=== PATIENT | female | born 1960 | race Caucasian/White ===

== ENCOUNTER 2023-12-25 13:24 | Outpatient (CLI) | payer MEDICARE, SELFPAY ==
[2023-12-25 20:05] LABS: Hematocrit 45.3 % (37.0-47.0); Hemoglobin 13.8 g/dL (12.0-15.0); Mean Corpuscular HGB Conc 30.5 g/dl (32-36); Mean Corpuscular Hemoglobin 30.3 pg (26-34); Mean Corpuscular Volume 99.6 fl (80-100); Mean Platelet Volume 10.6 fl (7.4-10.4); Platelet Count Result 285 k/mm3 (150-375); Red Blood Count 4.55 M/mm3 (4.2-5.4); Red Cell Distribution Width 14.1 % (11.5-14.5); White Blood Count 8.9 K/mm3 (4.5-10.0)
[2023-12-25 20:30] LABS: Alanine Aminotransferase 20 U/L (6-35); Albumin Level 4.5 g/dL (3.5-5.1); Alkaline Phosphatase 121 U/L (38-126); Anion Gap 11 mmol/L (4-12); Aspartate Amino Transferase 37 U/L (14-36); Bilirubin,Total 0.7 mg/dL (0.2-1.3); Blood Urea Nitrogen 21 mg/dL (7-17); Calcium 9.6 mg/dL (8.4-10.2); Carbon Dioxide 29 mmol/L (22-30); Chloride 101 mmol/L (98-107); Estimated Glomerular Filt Rate 56; Glucose 93 mg/dL (65-110); Potassium 4.8 mmol/L (3.4-5.0); Sodium 141 mmol/L (137-145)
== END 2023-12-25 13:25 | disposition home or self-care (01) ==
PROVIDERS: PCP Nurse Practitioner Adult Health; Visit Provider Nurse Practitioner Adult Health
DX: I50.9 Heart failure, unspecified (principal); E07.9 Disorder of thyroid, unspecified
CPT/HCPCS: 36415; 80053; 84443; 85027

== ENCOUNTER 2023-12-30 01:39 | Day surgery (SDC) | payer MEDICARE, SELFPAY ==
[2023-12-17 14:27] VITALS: BMI 36.6
[2023-12-30 14:03] VITALS: BMI 36.3
[2023-12-30 14:04] VITALS: BP 144/86; PULSE 94; RESP 20; TEMP 36.3; O2SAT 94
[2023-12-30] MEDS: LACTATED RINGERS 1,000 ML 150 ML IV CONT (14:06)
--- NOTE | 2023-12-30 14:14 | WPDANESEPPF ---
Anes - Initial Pre Proc Eval Procedure: Operation Date: 12/30/23 15:00 Proposed Procedures p Colonoscopy - Michael Viramontes MD Date/Time: 12/30/23 14:14 Surgeon: Michael Viramontes MD Pre Op Diagnosis: screening colon Patient Data Age: 63 Gender: F Height: 1.57 m Weight: 90 kg Last Vital Signs Temp 36.3 C L 12/30/23 14:04 Pulse 94 12/30/23 14:04 Resp 20 12/30/23 14:04 BP 144/86 H 12/30/23 14:04 Pulse Ox 94 12/30/23 14:04 O2 Del Method Room Air 12/30/23 14:04 Allergies Allergy/AdvReac Type Severity Reaction Status Date / Time Sulfa (Sulfonamide Allergy Unknown Skin Verified 12/30/23 13:59 Antibiotics) irritation SULFA Allergy Unknown Unknown Uncoded 12/30/23 13:59 CATS/HORSES Allergy Unknown Uncoded 12/30/23 13:59 Home Medications Medication Instructions Recorded Confirmed Type Atarax 1 tablet BYMOUTH PRN 10/16/23 12/25/23 History B12 1 tablet BYMOUTH DAILY 10/16/23 12/25/23 History budesonide 160 mcg-glycopyr 9 2 inh inhalation BID 10/16/23 12/25/23 History mcg-formot 4.8 mcg/actuation HFA inhaler (Breztri Aerosphere) empagliflozin 10 mg tablet 10 mg PO DAILY 10/16/23 12/25/23 History (Jardiance) alprazolam 1 mg tablet 1 mg PO DAILY #90 tabs 10/29/23 12/25/23 Rx furosemide 40 mg tablet 40 mg PO QAM #90 tabs 11/19/23 12/25/23 Rx potassium chloride 20 mEq 20 meq PO DAILY #90 tabs 11/25/23 12/25/23 Rx tablet,extended release levothyroxine 125 mcg tablet 125 mcg PO DAILY 12/17/23 12/25/23 History semaglutide (weight loss) 0.25 0.25 mg (0.5 mL) subcut WEEKLY #2 12/25/23 12/25/23 Rx mg/0.5 mL subcutaneous pen mL injector (Carmella) Patient hx anesthesia problems: none Family hx anesthesia problems: none Results Review: All pre-operative results and documents have been reviewed as part of the pre-operative evaluation. [facility] Past Medical History Medical History (Updated 12/30/23 @ 14:14 by Bradford Case MD) Asthma CHF exacerbation COPD (chronic obstructive pulmonary disease) Disorder of thyroid Obesity Family History Family History Father Heart disease Grandparent Heart disease Social History Social History Smoking packs per day: 1.5 Smoking cigarettes per day: 30.0 Years smoked: 45 Smoking pack-years: 67.50 Smoking status: Former smoker Tobacco type: cigarettes Alcohol intake: current Drinks per week: 10 Alcohol use details: 1-2 drinks a day Substance use type: does not use Living arrangements: with family Additional living arrangements comments: with Spiritual care concerns: No Anes - Eval Final PreProcedure Day of Procedure 12/30/23 14:14 Patient weight: obese Heart: regular rate and rhythm Lungs: clear to auscultation Airway: Mallampati scale class II Neurological: alert and oriented Last oral intake: >/= 8 hours ASA classification: III Emergent: no Anesthetic plan: proceed Anesthesia type and monitoring: general GIVS and standard monitoring Results Review: All pre-operative results and documents have been reviewed as part of the pre-operative evaluation. Informed Consent: The patient's anesthetic plan and its attendant risks and benefits were discussed with the patient/family/POA. Questions were solicited and answers provided to the satisfaction of the patient/family/POA.
--- NOTE | 2023-12-30 14:37 | PM.HPGS ---
History of Present Illness History of Present Illness Consent: Risks, benefits, and alternatives have been discussed and questions answered. Patient agrees to proceed with procedure. Chief complaint: screening colon Narrative: [place] Gaxiola is a 63 year old female here for first screening colonoscopy Review of Systems Review of Systems: All systems reviewed & are unremarkable except as noted in HPI and below PMFSH Past Medical History Medical History (Updated 12/30/23 @ 14:14 by Bradford Case MD) Asthma CHF exacerbation COPD (chronic obstructive pulmonary disease) Disorder of thyroid Obesity Family History Family History Father Heart disease Grandparent Heart disease Social History Social History Smoking packs per day: 1.5 Smoking cigarettes per day: 30.0 Years smoked: 45 Smoking pack-years: 67.50 Smoking status: Former smoker Tobacco type: cigarettes Alcohol intake: current Drinks per week: 10 Alcohol use details: 1-2 drinks a day Substance use type: does not use Living arrangements: with family Additional living arrangements comments: with Spiritual care concerns: No Meds Home Medications and Allergies Home Medications Medication Instructions Recorded Confirmed Type Atarax 1 tablet BYMOUTH PRN 10/16/23 12/30/23 History B12 1 tablet BYMOUTH DAILY 10/16/23 12/30/23 History budesonide 160 mcg-glycopyr 9 2 inh inhalation BID 10/16/23 12/30/23 History mcg-formot 4.8 mcg/actuation HFA inhaler (Breztri Aerosphere) empagliflozin 10 mg tablet 10 mg PO DAILY 10/16/23 12/30/23 History (Jardiance) alprazolam 1 mg tablet 1 mg PO DAILY #90 tabs 10/29/23 12/30/23 Rx furosemide 40 mg tablet 40 mg PO QAM #90 tabs 11/19/23 12/30/23 Rx potassium chloride 20 mEq 20 meq PO DAILY #90 tabs 11/25/23 12/30/23 Rx tablet,extended release levothyroxine 125 mcg tablet 125 mcg PO DAILY 12/17/23 12/30/23 History semaglutide (weight loss) 0.25 0.25 mg (0.5 mL) subcut WEEKLY #2 12/25/23 12/30/23 Rx mg/0.5 mL subcutaneous pen mL injector (Wegovy) Allergies Allergy/AdvReac Type Severity Reaction Status Date / Time Sulfa (Sulfonamide Allergy Unknown Skin Verified 12/30/23 13:59 Antibiotics) irritation SULFA Allergy Unknown Unknown Uncoded 12/30/23 13:59 CATS/HORSES Allergy Unknown Uncoded 12/30/23 13:59 Vital Signs Vital Signs - 24 hr 12/30/23 14:04 Temperature 97.4 F L Pulse Rate 94 Respiratory Rate 20 Blood Pressure 144/86 H Pulse Oximetry 94 Oxygen Delivery Room Air Exam Const: General: comfortable and no acute distress HENMT: Face/Nose/Sinus: Normal nares present Eyes: General: appearance normal, both eyes and all related structures Neck: Neck: no JVD Resp: Auscultation: clear to auscultation bilaterally Cardio: Rate: regular rate Rhythm: regular rhythm GI: Inspection: non-distended GI Palp: Yes Soft to palpation Skin: General skin exam: normal color Neuro: General: gait normal Speech: normal speech Extrem: General: normal to inspection Psych: Mental Status: mental status grossly normal Assessment and Plan Assessment and plan (1) Screening for colon cancer: Code(s): Z12.11 - Encounter for screening for malignant neoplasm of colon Status: Acute Assessment and Plan: colonoscopy
[2023-12-30 15:05] VITALS: BP 116/61; PULSE 77; RESP 26; O2SAT 100
[2023-12-30 15:15] VITALS: BP 134/75; PULSE 70; RESP 19; O2SAT 100
[2023-12-30 15:25] VITALS: BP 117/74; PULSE 72; RESP 22; O2SAT 100
== END 2023-12-30 15:32 | disposition home or self-care (01) ==
PROVIDERS: PCP Nurse Practitioner Adult Health; Visit Provider Internal Medicine Gastroenterology
PROC: 0DJD8ZZ Inspection of Lower Intestinal Tract, Via Natural or Artificial Opening Endoscopic (ICD-10-PCS; CPT 45378; principal; 2023-12-30 15:00)
DX: Z12.11 Encounter for screening for malignant neoplasm of colon (principal); K57.30 Diverticulosis of large intestine without perforation or abscess without bleeding; K63.5 Polyp of colon; K64.8 Other hemorrhoids; J44.9 Chronic obstructive pulmonary disease, unspecified; I50.9 Heart failure, unspecified; E07.9 Disorder of thyroid, unspecified; Z79.85 Long-term (current) use of injectable non-insulin antidiabetic drugs; Z79.84 Long term (current) use of oral hypoglycemic drugs; Z79.51 Long term (current) use of inhaled steroids; Z87.891 Personal history of nicotine dependence; E66.9 Obesity, unspecified; Z68.36 Body mass index [BMI] 36.0-36.9, adult
CPT/HCPCS: 45385; 88305; J2704; J7120

== ENCOUNTER 2024-04-20 11:46 | Outpatient (CLI) | payer MEDICARE, SELFPAY ==
--- OUTSIDE RECORDS SUMMARY | 2024-04-20 13:38 | XMS_ITS | Clinical Summary ---
Author Organization [facility] Address [facility] [place] [address] Care Team Providers Care Commercial Carpenter Name Role Phone Michael Kemp NP Primary Care Provider [phone] Allergies Active Allergy Reactions Criticality Noted Date Comments Sulfa Antibiotics Hives,Throat swelling High 022 Medications hydrOXYzine (ATARAX) 25 MG tablet Take 1 tablet (25 mg total) by mouth every 6 (six) hours as needed for Itching (hives). Active albuterol (PROVENTIL) (2.5 MG/3ML) 0.083% nebulizer solution Take 3 mLs (2.5 mg total) by nebulization every 4 (four) hours as needed for Shortness of breath. 360 mL 1 02/07/20 Active Additional Information Patient not taking.Reported on 04/07/2024 furosemide (LASIX) 40 MG tablet Take 1 tablet (40 mg total) by mouth daily. 30 tablet 1 02/07/20 Active potassium chloride CR (K-TAB) 20 MEQ tablet Take 1 tablet (20 mEq total) by mouth daily. 30 tablet 1 02/08/20 Active albuterol sulfate HFA 108 (90 Base) MCG/ACT inhaler Inhale 2 puffs into the lungs every 6 (six) hours as needed for Wheezing. 18 g 1 02/07/20 Active Additional Information Patient not taking.Reported on 04/07/2024 empagliflozin (JARDIANCE) 10 MG tablet Take 1 tablet (10 mg total) by mouth daily. 90 tablet 3 06/21/19 24 2024 Active levothyroxine (SYNTHROID) 125 MCG tablet Take 1 tablet (125 mcg total) by mouth daily. Active nirmatrelvir & ritonavir 300/100 (PAXLOVID, 300/100,) 20 x 150 MG & 10 x 100MG tablet packIndicatio ns:COVID Take TWO nirmatrelvir 150 mg tablet(s) along with ONE ritonavir 100 mg tablet, with all three tablets taken together, twice daily for 5 days. May take with or without food. Swallow tablets whole. Do not chew, break or crush.. 1 each 10/21/19 24 Active ALPRAZolam (XANAX) 1 MG tablet Take 1 tablet (1 mg total) by mouth daily. 01/24/20 24 Active OZEMPIC, 0.25 OR 0.5 MG/DOSE, 2 MG/3ML injection (PEN) inject 0.5 mg subcutaneously once a week 02/02/20 24 Active gabapentin (NEURONTIN) 300 MG capsule Take 1 capsule (300 mg total) by mouth every evening. Active budesonide-gl ycopyrrolate- formoterol (BREZTRI AEROSPHERE) 160-9-4.8 MCG/ACT inhalerIndica tions:Centril obular emphysema (CMS/HCC HHS/HCC) Inhale 2 puffs into the lungs 2 (two) times daily. Rinse and spit after each use 11 g 3 04/13/19 25 Active Budeson-Glyco pyrrol-Formot therese (BREZTRI AEROSPHERE) 160-9-4.8 MCG/ACT AerosolIndica tions:Centril obular emphysema (CMS/HCC HHS/HCC) Inhale 2 puffs into the lungs 2 (two) times a day. 10.7 g 6 10/02/19 24 2024 Discontinued Active Problems Problem Noted Date Diagnosed Date Asthma (HHS/HCC) 08/22/2023 Bronchitis 08/22/2023 Abdominal pain 08/22/2023 Chest pain 08/22/2023 Hemorrhoids 08/22/2023 Hypothyroidism 08/22/2023 Stress 08/22/2023 Urticaria 08/22/2023 Chronic obstructive pulmonary disease (CMS/[facility] H HS/HCC) 08/22/2023 Restless legs 07/10/2023 Vitamin D deficiency 07/10/2023 Otalgia of left ear 05/17/2023 Edema of lower extremity 04/15/2023 Chronic respiratory failure with hypoxia ([facility]) 03/21/2023 Centrilobular emphysema ([facility]) 2023 Cigarette nicotine dependence in remission 03/21 Abnormal finding on lung imaging 03/21/2023 Excessive daytime sleepiness 03/21/2023 Spasm 02/10/2023 COPD exacerbation ([facility]) 01/28/2023 Acute urinary tract infection 01/21/2023 Insomnia 05/11/2022 Nicotine dependence 05/11/2022 Colon cancer screening 05/02/2022 Overview (05/02/2022): Added automatically from request for surgery [id number] Encounters Date Type Department Care Team Description 04/07/2024 11:00 AM EXHIBIT DISPLAY REPRESENTATIVE Office Visit [facility] Mult[facility]pec[facility]ty Care - [facility] [address] [facility] [place] [address] Juan Willoughby MD Follow Up 04/07/2024 Travel 02/21/2024 1:45 PM EXHIBIT DISPLAY REPRESENTATIVE Office Visit [facility] [address] Monroe Castillo MD CHF (6mo) 02/21/2024 Travel 01/22/2024 10:29 AM EXHIBIT DISPLAY REPRESENTATIVE - 01/22/2024 11:59 PM EXHIBIT DISPLAY REPRESENTATIVE Hospital Encounter [facility] [place] [address] Michael Kemp NP Discharge Disposition: Home or Self Care (Routine Discharge) 01/22/2024 Travel from Last 3 Months Immunizations Name Administration Dates Next Due COVID-19 Vaccine (Generic) 06/16/2020 Influenza Adult (Generic) 11/20/2018 Family History Medical History Relation Comments Heart Disease Father Heart Attack Maternal Grandfather Heart Disease Maternal Grandfather No Known Problems Mother Heart Disease Paternal Uncle Relation Status Comments Father Maternal Grandfather Mother Alive Paternal Uncle Social History Tobacco Use Types Packs/Day Years Used Date Smoking Tobacco: Former Cigarettes 1.1 60 1 03/30/1977 - 01/28/2023 Smokeless Tobacco: Never Tobacco Cessation:Counseling Given: Yes Alcohol Use Standard Drinks/Week Comments Not Currently 3.3 (1 standard drink = 0.6 oz p ure alcohol) 1 glass loc/day [facility] Utilities Answer Date Recorded In the past 12 months has e [employer], [employer], or water [employer] threatened to shut off services in your home? No 01/28/2023 Humiliation, Afraid, Rape, and Kick questionnair e Answer Date Recorded Within the last year, have y ou been afraid of your partner or ex-partner? No 01/28/2023 Within the last year, have y ou been humiliated or emotionally abused in other ways by your partner or ex-partner? No Within the last year, have y ou been kicked, hit, slapped, or otherwise physically hurt by your partner or ex-partner? No 01/28/2023 Within the last year, have y ou been raped or forced to have any kind of sexual activity by your partner or ex-partner? No 01/28/2023 Overall Financial Resource Strain (CARDIA) Answe r Date Recorded How hard is it for you to pa y for the very basics like food, housing, medical care, and heating? Not hard at all 01/28/2023 PHQ-2 Answer Date Recorded Patient Health Questionnaire-2 Score 0 10/21/2023 Hunger Vital Sign Answer Date Recorded Within the past 12 months, y ou worried that your food would run out before you got the money to buy more. Never true 01/29/20 23 Within the past 12 months, t he food you bought just didn't last and you didn't have money to get more. Never true 01/28/2023 PRAPARE - Transportation Answer Date Re corded In the past 12 months, has l ack of transportation kept you from medical appointments or from getting medications? No 05/2022 In the past 12 months, has l ack of transportation kept you from meetings, work, or from getting things needed for daily living? No 01/28/2023 Housing Stability Vital Sign Answer Dav e Recorded In the last 12 months, was t here a time when you were not able to pay the mortgage or rent on time? No 01/28/2023 In the last 12 months, how many places have you lived? 1 01/28/2023 In the last 12 months, was t here a time when you did not have a steady place to sleep or slept in a long-term (including now)? No 01/28/2023 Comments Unknown Sex and Gender Information Value Date Recorded Sex Assigned at Not on file Legal Sex Female 11:05 AM CDT Gender Identity Not on file Sexual Orientation Not on file Last Filed Vital Signs Vital Sign Reading Time Taken Comments Blood Pressure 131/77 04/07/2024 10:53 AM EXHIBIT DISPLAY REPRESENTATIVE Pulse 86 04/07/2024 10:53 AM EXHIBIT DISPLAY REPRESENTATIVE Temperature 36.7 C (98.1 F) 10/02/2023 10:20 AM CDT Respiratory Rate 16 04/07/2024 10:53 AM EXHIBIT DISPLAY REPRESENTATIVE Oxygen Saturation 98% 04/07/2024 10:53 AM EXHIBIT DISPLAY REPRESENTATIVE ra Inhaled Oxygen Concentration - - Weight 89.4 kg (197 lb) 04/07/2024 10:53 AM EXHIBIT DISPLAY REPRESENTATIVE Height 157.5 cm (5' 2 ) 04/07/2024 10:53 AM EXHIBIT DISPLAY REPRESENTATIVE Body Mass Index 36.03 04/07/2024 10:53 AM EXHIBIT DISPLAY REPRESENTATIVE Plan of Treatment Upcoming Encounters Date Type Department Care Team (Late st Contact Info) Description 06/04/2024 4:[address] [facility] [place] [address] Juan Willoughby MD [address] [place] [address] [address] [place] [phone] 07/31/2024 10:[address] [facility] [place] [address] Juan Willoughby MD [address] [place] [address] [address] [place], [place] [address] 10/07/2024 11:40 AM CDT Office Visit [facility] Medical Group Multispecialty Care - [facility] [address] [facility] [place] [phone] Juan Willoughby MD [facility] [facility] [address] [place] [address] Health Maintenance Due Date Last Done Comments Colorectal Cancer Screening Colonoscopy (10 Years) 1960 Pneumococcal Vaccine: 65+ Years (1 of 2 - PCV) 1964 Pneumococcal Vaccine: Pediatrics (0 to 5 Years) and At-Risk Patients (6 to 64 Years) (1 of 2 - PCV) 1964 Hepatitis C 1976 DTaP, Tdap and Td Vaccines ( 1 - Tdap) 1977 Zoster Vaccines (1 of 2) 2008 RSV Immunization or 60+ Years (1 - Risk 60-74 years 1-dose series) 2018 Dexa Scan (General) 10/18/2023 COVID-19 Vaccine (4 - 2023-2 5 season) 2023 06/16/2020, 06/16/2020, 05/26/2020 Influenza Adult (#1) 2023 01/03/2021, 01/19/2020, 11/20/2018 PHQ-2 (Physician [place]) 02/26/2024 10/21/2023 Lung Cancer Screening 08/19/2024 08/20/2023 , 01/29/2023, 12/23/2021 Mammogram Screening 01/21/2026 01/22/2024, 12/23/2021 Meningococcal B Vaccine Aged Out No l onger eligible based on patient's age to complete this topic Meningococcal Vaccine Aged Out No geovany lady eligible based on patient's age to complete this topic RSV Immunizations Under 20 Months Aged Out No longer eligible b ased on patient's age to complete this topic Goals Goal Patient Goal Type Associated Problems Recent Progress Patient-Stated? Author Patient will return to prior living situation and remain independent in ADLs upon discharge from hospital Lifestyle Peggy Galarza sports physical therapist Procedure Name Priority Date/Time Associated Diagnosis Comments MG SCREENING W ZAFAR JOVANNY DIGI Routine 01/22/2024 10:56 AM EXHIBIT DISPLAY REPRESENTATIVE Encounter for screening mammogram for malignant neoplasm of breast CT CHEST WO CON Routine 08/20/2023 10:55 AM CDT Abnormal finding on lung imaging from Last 3 Months or Most Recently Relevant to Health Maintenance Results * MG SCREENING W ZAFAR JOVANNY DIGI (01/22/2024 10:56 AM EXHIBIT DISPLAY REPRESENTATIVE) Anatomical Region Laterality Modality Breast Bilateral Mammography 01/22/2024 2:30 PM EXHIBIT DISPLAY REPRESENTATIVE Impressions 01/22/2024 2:34 PM EXHIBIT DISPLAY REPRESENTATIVE IMPRESSION: No significant interval change. No mammographic evidence of malignancy. RECOMMENDATION: Routine ScreeningBilateral OVERALL IMAGING ASSESSMENT: ACR BI-RADS 2 - BENIGN FINDING(S). Ordered By: MICHAEL KEMP Interpreted By: Jerardo Hinkle, 01/22/2024 2:30 PM Narrative 01/22/2024 2:34 PM EXHIBIT DISPLAY REPRESENTATIVE [facility] [place] [address] EXAMINATION: MG SCREENING W ZAFAR JOVANNY DIGI INDICATIONS: Screening TECHNIQUE: Digital full field CC and MLO screening mammography bilaterally to include 3-D Tomosynthesis technique. This study was read with the assistance of a computer-aided detection system. HISTORY: No reported breast complaint. No documented personal or first degree family history of breast cancer. No documented prior breast procedure. COMPARISON: 12/23/2021 TISSUE DENSITY: The breasts are heterogeneously dense, which may obscure small masses. FINDINGS: Few scattered typically benign round calcifications. No suspicious microcalcification or mass. No developing asymmetry or architectural distortion. No axillary adenopathy. us Michael Kemp [facility] Final Result * CT CHEST WO CON (08/20/2023 10:55 AM CDT) Anatomical Region Laterality Modality Chest Computed Tomogra phy 08/27/2023 3:51 PM CDT Impressions 08/27/2023 4:08 PM CDT Impression: 1. Improving overall improved cardiogenic pulmonary findings compared to the 01/30/2023 CT study; normalization of cardiac size. Resolution of bilateral small pleural effusios and adjacent subsegmental atelectasis and interstitial pulmonary edema. 2. No acute cardiopulmonary finding 3. Stable borderline \mediastinal adenopathy. Ordered By: JUAN WILLOUGHBY Interpreted By: Oneida Gunn MD, 08/27/2023 3:51 PM Narrative 08/27/2023 4:08 PM CDT Exam: CT CHEST WO CON Exam Date/Time: 08/20/2023 10:46 AM Indication: 62 female. Abnormal lung x-ray imaging follow-up. Comparison: Chest x-ray 02/04/2023; CT chest 01/30/2023 Technique: Computed tomography of the chest performed without contrast. A dose lowering technique was used for this procedure, which may include, but is not limited to, dose reduction technique, automated exposure control, the use of iterative reconstruction, and ALARA (As Low As Reasonably Achievable) / Image Gently techniques.. CT findings: Support tubes and lines: None. Base of neck/thyroid: Negative. MEDIASTINUM: Heart: Normalization of cardiac size and resolution of the small pericardial effusion since the prior CT study. Lymph nodes: No supraclavicular axillary or internal mammary adenopathy. Index right paratracheal lymph node is now borderline measuring 1 cm in short axis compared to 1.3 similar prior study. Index right hilar node measures 1.3 cm short axis compared to 2.7 cm on the prior. Limited assessment for hilar adenopathy VASCULATURE Normal diameter of the thoracic aorta. Minimal atherosclerotic calcification. LUNGS AND PLEURA Lungs: No concerning pulmonary nodule/mass, consolidation or other concerning acute or chronic parenchymal airspace disease or airway finding. Pleura: No pleural effusion thickening or calcification. Previously seen pleural effusions have cleared. Minimal right pleural fissure fluid related prominence. There is mild right middle lobe and lower lobe streaky and focal dependent subsegmental atelectasis. No concerning pulmonary nodule mass or consolidation. Stable. No acute finding. Tiny sliding hiatal hernia. BONES/SOFT TISSUES No significant lesion. Procedure Note Oneida Gunn MD - 08/27/2023 Exam: [facility] Exam Date/Time: 08/20/2023 10:46 AM Indication: 62 female. Abnormal lung x-ray imaging follow-up. Comparison: Chest x-ray 02/04/2023; CT chest 01/30/2023 Technique: Computed tomography of the chest performed without contrast. Adose lowering technique was used for this procedure, which may include,but is not limited to, dose reduction technique, automated exposurecontrol, the use of iterative reconstruction, and ALARA (As Low AsReasonably Achievable) / Image Gently techniques.. CT findings: Support tubes and lines: None. Base of neck/thyroid: Negative. MEDIASTINUM: Heart: Normalization of cardiac size and resolution of the smallpericardial effusion since the prior CT study. Lymph nodes: No supraclavicular axillary or internal mammary adenopathy. Index right paratracheal lymph node is now borderline measuring 1 cm inshort axis compared to 1.3 similar prior study. Index right hilar nodemeasures 1.3 cm short axis compared to 2.7 cm on the prior. Limitedassessment for hilar adenopathy VASCULATURE Normal diameter of the thoracic aorta. Minimal atheroscleroticcalcification. LUNGS AND PLEURA Lungs: No concerning pulmonary nodule/mass, consolidation or otherconcerning acute or chronic parenchymal airspace disease or airwayfinding. Pleura: No pleural effusion thickening or calcification. Previously seenpleural effusions have cleared. Minimal right pleural fissure fluidrelated prominence. There is mild right middle lobe and lower lobe streaky and focal dependentsubsegmental atelectasis. No concerning pulmonary nodule mass orconsolidation. Stable. No acute finding. Tiny sliding hiatal hernia. BONES/SOFT TISSUES No significant lesion. Impression: 1. Improving overall improved cardiogenic pulmonary findings compared tothe 01/30/2023 CT study; normalization of cardiac size. Resolution ofbilateral small pleural effusios and adjacent subsegmental atelectasis andinterstitial pulmonary edema. 2. No acute cardiopulmonary finding 3. Stable borderline \mediastinal adenopathy. Ordered By: JUAN WILLOUGHBY Interpreted By: Oneida Gunn MD, 08/27/2023 3:51 PM us Juan Willoughby MD CT Final Resul t from Last 3 Months or Most Recently Relevant to Health Maintenance Insurance [facility] Advance Directives * Full Code (Latest Code Status on File) Date Activated Date Inactivated Comments 01/28/2023 1:54 PM 02/06/2023 3:55 PM Care Teams Commercial Carpenter Relationship Specialty Start Date End Date Michael Kemp NP [address] [place] [address] PCP - General NURSE PRACTITIONER 01/22/24
--- OUTSIDE RECORDS SUMMARY | 2024-04-20 13:38 | XMS_ITS | Encounter Summary ---
Author Organization [facility] Address [facility] [place] [address] Care Team Providers Care Server Security Administrator Name Role Phone Enriqueta Clinton MD Primary Care Provider [phone] Danny Navarrete MD Primary Care Provider [phone] Cindy Kemp NP Primary Care Provider [phone] Encounter Details Date Type Department Care Team (Late st Contact Info) Description 02/28/2023 Abstract [facility] [address] Evangelist Lu MA Social History Tobacco Use Types Packs/Day Years Used Date Smoking Tobacco: Every Day Cigarettes 1 45 Smokeless Tobacco: Never Alcohol Use Standard Drinks/Week Comments Yes 0 (1 standard drink = 0.6 oz pur e alcohol) 1 glass loc/day [facility] Utilities Answer Date Recorded In the past 12 months has [employer], gas, oil, or water [employer] threatened to shut off services in your [...] at all 01/28/2023 PHQ-2 Answer Date Recorded PHQ-2 Score - If the patient scores above 3, please move on to questions 3-9 0 01/03/2022 Hunger Vital Sign Answer Date Recorded Within [...] place to sleep or slept in a detention (including now)? No 01/28/2023 Comments Unknown Sex and Gender Information Value Date Recorded Sex Assigned at Not on file Legal Sex Female 11:05 AM CDT Gender Identity Not on file Sexual Orientation Not on file documented as of this encounter Functional Status * Are you deaf or do you have serious difficulty hearing Answer Date of Assessment Author Status No 01/28/2023 5:44 PM Zena Fernandez RN Active * Are you blind or do you have serious difficulty seeing, even when wearing glasses? Answer Date of Assessment Author Status No 01/28/2023 5:44 PM Zena Fernandez RN Active * Do you have serious difficulty walking or climbing stairs? Answer Date of Assessment Author Status No 01/28/2023 5:44 PM Zena Fernandez RN Active * Do you have difficulty dressing or bathing? Answer Date of Assessment Author Status No 01/28/2023 5:44 PM Zena Fernandez RN Active * Because of a physical, mental, or emotional condition, do you have difficulty doing errands alone such as visiting a doctor's office or shopping? Answer Date of Assessment Author Status No 01/28/2023 5:44 PM Zena Fernandez RN Active documented as of this encounter Mental Status * Because of a physical, mental, or emotional condition, do you have serious difficulty concentrating, remembering, or making decisions? Answer Entry Date Author Status No 01/28/2023 5:44 PM Zena Fernandez RN Active documented in this encounter Plan of Treatment Upcoming Encounters Date Type Department Care Team (Late st Contact Info) Description 06/04/2024 4:00 PM CDT Appointment [facility] [place] [address] Facundo Pereira MD [address] [place] [address] [address] [place] [phone] 07/31/2024 10:00 AM CDT [place]ointment [place] [address] Facundo Pereira MD [address] [place] [phone] 10/07/2024 11:40 AM CDT Office Visit [facility] Medical [facility] Multispecialty Care - [facility] [address] [facility] [place] [address] Facundo Pereira MD [address] [place] [phone] documented as of this encounter Goals Goal Patient Goal Type Associated Problems Recent Progress Patient-Stated? Author Patient will return to prior living situation and remain independent in ADLs upon discharge from hospital Lifestyle No Peggy Ching RN documented as of this encounter Procedures Procedure Name Priority Date/Time Associated Diagnosis Comments LIPID PANEL Routine 02/22/2023 documented in this encounter Results * LIPID PANEL (02/22/2023) CHOLESTEROL 196 HDL 41 TRIGLYCERIDES 129 NON HDL CHOLESTEROL 155 LDL (CALCULATED) 131 02/22/2023 us Default History Genericprovider LABORATORY Final Result documented in this encounter Visit Diagnoses Not on filedocumented in this encounter Care Teams Server Security Administrator Relationship Specialty Start Date End Date Enriqueta Clinton MD [address] [place] [address] PCP - General FAMILY PRACTICE 12/04/21 10/01/23 Danny Navarrete MD [address] [place] [address] PCP - General FAMILY PRACTICE 10/02/23 01/21/24 Cindy Kemp NP [address] [place] [address] PCP - General NURSE PRACTITIONER 01/22/24 documented as of this encounter
--- OUTSIDE RECORDS SUMMARY | 2024-04-20 13:38 | XMS_ITS | Continuity of Care Document ---
Author Organization [facility] Address [address] [place] [address] [place] [address] Phone Care Team Providers Care Service Delivery Manager Name Role Phone Mandeep Gentile MD Unavailable [...] Copied on Encounter OFFICE/OUTPA TIENT VISIT, EST [facility], [address] [place], [place] [address]e [place], [id number], [place] tel:[phone] [facility] Medicine thyroid1 (chief complaint) thyroid1 (chief complaint) KEREN (chief complaint) ferritin1 (chief complaint) tobacco1 (chief complaint) HypothyroidismRaise d antibody titerDisorder of iron metabolism, unspecifiedInsomnia Tobacco use Sep-0 9 Seferino Kaufman. [address], [place], [place], [id number] , [place]. tel:[phone] Referring Provider: Connie Amaya [address] [facility], [place], [place], [id number]. tel:[phone] OFFICE/OUTPA TIENT VISIT, [facility], [place], [address], [place], [place], [id number], [place] tel:[phone] [facility] hypothyroi dism1 (chief complaint) anxiety1 (chief complaint) ferritin1 (chief complaint) KEREN (chief complaint) hive1 (chief complaint) Raised antibody titerHypothyroidism UrticariaDisorder of iron metabolism, unspecifiedInsomnia Elder- 9 Seferino Jennings [address], [place], [place], [address] , [place]. tel:[phone] [facility]: [facility] [place], [place], [id number]. tel:[phone] OFFICE/OUTPA TIENT VISIT, [facility], [place], [address] [place], [address], [place] tel:[phone] [facility] thyroid1 (chief complaint) rash1 (chief complaint) D (chief complaint) Raised antibody titerHypothyroidism Disorder of iron metabolism, unspecifiedVitamin D deficiency, unspecified May-0 9 Seferino Jennings [address], [place], [place], [id number] , [place]. tel:[phone] Referring Provider: Connie Amaya [address] [facility], [place], [place], [id number]. tel:[phone] OFFICE/OUTPA TIENT VISIT, [facility], [place], [address] [place], [address], [place] tel:[phone] [facility] thyroid1 (chief complaint) rash1 (chief complaint) HypothyroidismRashE ncounter for screening for other viral diseases 9 Seferino Kaufman. [address], [place], [place], [address] , [place]. tel:[phone] Referring Provider: Mandeep Gentile, [address], [place], [place], [id number]. tel:[phone] PREV VISIT, NEW, AGE 40-64 [facility], [address], [place], [place], [address], [place] tel:[phone] [facility] Medicine PHysical (chief complaint) Encounter for general adult medical exam w abnormal findingsEmphysemaHy pothyroidismInsomni Cordell Mar-0 8-201 9 Seferino Kaufman. [address], [place], [place], [address] , [place]. tel:[phone] Family History Family Member Type Diagnosis Age At Onset Brother Problem (finding) of ALS (Cause Of D eath) 42 Father Problem (finding) of unknown reason (Cause Of ) 89 Mother Problem (finding) Alive and well Payers Payer name Insurance type Covered constitution party ID Authoriza tion(s) No Information Social [...] Description: Pt has positive KEREN. Pt saw sales relationship manager but she deferred anyfurther work up due [...] KEREN Pt has positive KEREN. Pt saw sales relationship manager but she deferred any further work up [...] Mental Status Date Cognitive Assessment Orientation - [place] ed to time, place, person, situation.
[2024-04-20 20:03] LABS: Anion Gap 6 mmol/L (4-12); Blood Urea Nitrogen 21 mg/dL (7-17); Calcium 9.3 mg/dL (8.4-10.2); Carbon Dioxide 30 mmol/L (22-30); Chloride 105 mmol/L (98-107); Cholesterol 155 mg/dL (0-200); Estimated Glomerular Filt Rate 49; Glucose 81 mg/dL (65-110); HDL Direct 36 mg/dL; Magnesium 2.3 mg/dL (1.6-2.3); Potassium 4.5 mmol/L (3.4-5.0); Sodium 141 mmol/L (137-145); Triglycerides 156 mg/dL (<150)
[2024-04-20 20:13] LABS: LDL Cholesterol Direct 80 mg/dL
[2024-04-20 20:32] LABS: Thyroid Stimulating Hormone 0.997 uIU/mL (0.465-4.680)
== END 2024-04-20 11:47 | disposition home or self-care (01) ==
PROVIDERS: PCP Nurse Practitioner Adult Health; Visit Provider Nurse Practitioner Adult Health
DX: I50.9 Heart failure, unspecified (principal); E07.9 Disorder of thyroid, unspecified
CPT/HCPCS: 36415; 80048; 80061; 83735; 84443

== ENCOUNTER 2024-10-19 14:44 | Outpatient (CLI) | payer MEDICARE, SELFPAY ==
--- OUTSIDE RECORDS SUMMARY | 2018-10-30 10:30 | XMS_ITS | Continuity of Care Document ---
Author Organization [facility] Address [address] [place] [address] [place] [address] Phone Care Team Providers Care Drapery And Upholstery Measurer Name Role Phone Mandeep Gentile MD Unavailable [...] Copied on Encounter OFFICE/OUTPA TIENT VISIT, EST [facility], [address] [place], [place] [address] [place], [id number], [place] tel:[phone] [facility] Medicine thyroid1 (chief complaint) thyroid1 (chief complaint) KEREN (chief complaint) ferritin1 (chief complaint) tobacco1 (chief complaint) HypothyroidismRaise d antibody titerDisorder of iron metabolism, unspecifiedInsomnia Tobacco use Sep-0 9 Seferino Kaufman. [address], [place], [place], [address] , [place]. tel:[phone] Referring Provider: Connie Amaya [address] [facility] A, [place], [place], [address]. tel:[phone] OFFICE/OUTPA TIENT VISIT, [facility], [address], [place], [place], [address], [place] tel:[phone] [facility] hypothyroi dism1 (chief complaint) anxiety1 (chief complaint) ferritin1 (chief complaint) KEREN (chief complaint) hive1 (chief complaint) Raised antibody titerHypothyroidism UrticariaDisorder of iron metabolism, unspecifiedInsomnia Elder- 9 Sefreino Jennings [address], [place], [place], [address] , [place]. tel:[phone] [facility]: [facility] [place], [place], [address]. tel:[phone] OFFICE/OUTPA TIENT VISIT, [facility], [address] [place], [address], [place] tel:[phone] [facility] thyroid1 (chief complaint) rash1 (chief complaint) D (chief complaint) Raised antibody titerHypothyroidism Disorder of iron metabolism, unspecifiedVitamin D deficiency, unspecified May-0 9 Seferino Jennings [address], [place], [place], [address] , [place]. tel:[phone] Referring Provider: Connie Amaya [address] [facility] A, [place], [place], [address]. tel:[phone] OFFICE/OUTPA TIENT VISIT, [facility], [address] [place], [address], [place] tel:[phone] [facility] thyroid1 (chief complaint) rash1 (chief complaint) HypothyroidismRashE ncounter for screening for other viral diseases 9 Seferino Kaufman. [address], [place], [place], [address] , [place]. tel:[phone] Referring Provider: Mandeep Gentile, [address], [place], [place], [address]. tel:[phone] PREV VISIT, NEW, AGE 40-64 [facility], [address], [place], [place], [address], [place] tel:[phone] [facility] PHysical (chief complaint) Encounter for general adult medical exam w abnormal findingsEmphysemaHy pothyroidismInsomni Cordell Mar-0 8-201 9 Seferino Kaufman. [address], [place], [place], [address] , [place]. tel:[phone] Family History Family Member Type Diagnosis Age At Onset Brother Problem (finding) of ALS (Cause Of D eath) 42 Father Problem (finding) of unknown reason (Cause Of ) 89 Mother Problem (finding) Alive and well Payers Payer name Insurance type Covered democrat ID Authoriza tion(s) No Information Social History [...] Description: Pt has positive KEREN. Pt saw stripper latex but she deferred anyfurther work up due [...] KEREN Pt has positive KEREN. Pt saw stripper latex but she deferred any further work up [...] Mental Status Date Cognitive Assessment Orientation - [place] ed to time, place, person, situation.
--- OUTSIDE RECORDS SUMMARY | 2024-10-19 15:00 | XMS_ITS | Encounter Summary ---
Author Organization [facility] Address Critical access hospital[address] [place] [address] Care Team Providers Care Commodity Specialist Name Role Phone Enriqueta Clinton MD Primary Care Provider [phone] Danny Navarrete MD Primary Care Provider [phone] Cindy Kemp NP Primary Care Provider [phone] Encounter Details Date Type Department Care Team (Late st Contact Info) Description 02/28/2023 Abstract [facility] [address] Evangelist Lu MA Social History Tobacco Use Types Packs/Day Years Used Date Smoking Tobacco: Every Day Cigarettes 1 45 Smokeless Tobacco: Never Alcohol Use Standard Drinks/Week Comments Yes 0 (1 standard drink = 0.6 oz pur e alcohol) 1 glass loc/day [facility] Utilities Answer Date Recorded In the past 12 months has [employer], gas, oil, or water [employer] threatened to shut off services in your [...] place to sleep or slept in a long term (including now)? No 01/28/2023 Comments Unknown Sex and Gender Information Value Date Recorded Sex Assigned at Female 06/04/2024 3:36 PM CDT Legal Sex Female 11:05 AM CDT Gender [...] Care Team (Late st Contact Info) Description 04/12/2025 11:40 AM INSPECTOR TECHNICIAN Office Visit [facility] Medical Group Multispecialty Care - [facility] [address] [facility], [address] [place] [address] Facundo Pereira MD [address] [place] [address] [address] [place] [address] documented as of this encounter Goals Goal [...] on filedocumented in this encounter Care Teams Commodity Specialist Relationship Specialty Start Date End Date Enriqueta Clinton MD [address] [place] [address] PCP - General FAMILY PRACTICE 12/04/21 10/01/23 Danny Navarrete MD [address] [place] [address] PCP - General FAMILY PRACTICE 10/02/23 01/21/24 Cindy Kemp NP [address] [place] [address] PCP - General NURSE PRACTITIONER 01/22/24 documented as of this encounter
--- OUTSIDE RECORDS SUMMARY | 2024-10-19 15:00 | XMS_ITS | Clinical Summary ---
Author Organization [facility] Address [facility]ly [facility] [place] [address] Care Team Providers Care Grocery Worker Name Role Phone Michael Kemp NP Primary Care Provider [phone] Allergies Active Allergy Reactions Criticality Noted Date [...] Shortness of breath. 360 mL 1 02/07/20 23 Active Additional Information Patient not taking.Reported on 10/07/2024 furosemide (LASIX) 40 MG tablet Take 1 tablet (40 mg total) by mouth daily. 30 tablet 1 02/07/20 23 Active potassium chloride CR (K-TAB) 20 MEQ tablet Take 1 tablet (20 mEq total) by mouth daily. 30 tablet 1 02/08/20 23 Active levothyroxine (SYNTHROID) 125 MCG tablet Take 1 tablet (125 mcg total) by mouth daily. Active ALPRAZolam (XANAX) 1 MG tablet Take 1 tablet (1 mg total) by mouth daily. 01/24/20 24 Active gabapentin (NEURONTIN) 300 MG capsule Take 1 capsule (300 mg total) by mouth every evening. Active empagliflozin (JARDIANCE) 10 MG tablet Take 1 tablet by mouth once daily 90 tablet 1 08/07/19 25 Active ipratropium-al buterol (DUONEB) 0.5-2.5 (3) MG/3ML Solution Active budesonide-gly copyrrolate-fo rmoterol (BREZTRI AEROSPHERE) 160-9-4.8 MCG/ACT inhalerIndicat ions:Centrilob ular emphysema (CMS/HCC HHS/HCC) Inhale 2 puffs into the lungs 2 (two) times daily. Rinse and spit after each use 11 g 3 10/08/19 25 Active albuterol sulfate HFA 108 (90 Base) MCG/ACT inhalerIndicat ions:Centrilob ular emphysema (CMS/HCC HHS/HCC) Inhale 2 puffs into the lungs every 6 (six) hours as needed for Wheezing. 18 g 1 10/08/19 25 Active albuterol sulfate HFA 108 (90 Base) MCG/ACT inhaler Inhale 2 puffs into the lungs every 6 (six) hours as needed for Wheezing. 18 g 1 02/07/20 23 025 Discontinu ed(Reorder ) nirmatrelvir & ritonavir 300/100 (PAXLOVID, 300/100,) 20 x 150 MG & 10 x 100MG tablet packIndication s:COVID Take TWO nirmatrelvir 150 mg tablet(s) along with ONE ritonavir 100 mg tablet, with all three tablets taken together, twice daily for 5 days. May take with or without food. Swallow tablets whole. Do not chew, break or crush.. 1 each 10/21/19 24 025 Discontinu ed(Other- Please enter comment in Notes field) OZEMPIC, 0.25 OR 0.5 MG/DOSE, 2 MG/3ML injection (PEN) inject 0.5 mg subcutaneously once a week 02/02/20 24 025 Discontinu ed(Other- Please enter comment in Notes field) budesonide-gly copyrrolate-fo rmoterol (BREZTRI AEROSPHERE) 160-9-4.8 MCG/ACT inhalerIndicat ions:Centrilob ular emphysema (CMS/HCC HHS/HCC) Inhale 2 puffs into the lungs 2 (two) times daily. Rinse and spit after each use 11 g 3 04/13/19 25 025 Discontinu ed(Reorder ) Active Problems Problem Noted Date Diagnosed Date Asthma ([facility]) 08/22/2023 Bronchitis 08/22/2023 Abdominal pain 08/22/2023 Chest pain 08/22/2023 Hemorrhoids 08/22/2023 Hypothyroidism 08/22/2023 Stress 08/22/2023 Urticaria 08/22/2023 Chronic obstructive pulmonary disease ([facility] H /[facility]) 08/22/2023 Restless legs 07/10/2023 Vitamin D deficiency 07/10/2023 Otalgia of left ear 05/17/2023 Edema of lower extremity 04/15/2023 Chronic respiratory failure with hypoxia ([facility]/ C [facility]) 03/21/2023 Centrilobular emphysema ([facility]) 2023 Cigarette nicotine dependence in remission 03/21 Abnormal finding on lung imaging 03/21/2023 Excessive daytime sleepiness 03/21/2023 Spasm 02/10/2023 COPD exacerbation ([facility]) 01/28/2023 Acute urinary tract infection 01/21/2023 Insomnia 05/11/2022 Nicotine dependence 05/11/2022 Colon cancer screening 05/02/2022 Overview (05/02/2022): Added automatically from request for surgery [id number] Encounters Date Type Department Care Team Description 10/07/2024 11:40 AM CDT Office Visit [facility] Medical Group Multispecialty Care - [facility] [address] [facility] [address] [place] [address] Facundo Willoughby MD Follow Up 10/07/2024 Travel 08/06/2024 Scan HEALTH INFO SRVCS Scanned, [facility] 07/31/2024 9:55 AM CDT - 07/31/2024 11:59 PM CDT Hospital Encounter [facility] [place] [address] Facundo Willoughby MD Discharge Disposition: Home or Self Care (Routine Discharge) 07/31/2024 Travel from Last 3 Months Immunizations Immunization Administration Dates Next Due COVID-19 Vaccine (Generic) [...] oz p ure alcohol) 1 glass loc/day [facility] Utilities Answer Date Recorded In the past 12 months has [employer], gas, oil, or water [employer] threatened to shut off services in your [...] place to sleep or slept in a halfway (including now)? No 01/28/2023 Comments Unknown Sex and Gender Information Value Date Recorded Sex Assigned at Female 06/04/2024 3:36 PM CDT Legal Sex Female 11:05 AM CDT Gender Identity Not on file Sexual Orientation Not on file Last Filed Vital Signs Vital Sign Reading Time Taken Comments Blood Pressure 131/75 10/07/2024 11:36 AM CDT Pulse 95 10/07/2024 11:36 AM CDT Temperature 36.7 C (98.1 F) 10/02/2023 10:20 AM CDT Respiratory Rate 16 10/07/2024 11:36 AM CDT Oxygen Saturation 95% 10/07/2024 11:36 AM CDT ra Inhaled Oxygen Concentration - - Weight 96.2 kg (212 lb) 10/07/2024 11:36 AM CDT Height 157.5 cm (5' 2) 10/07/2024 11:36 AM CDT Body Mass Index 38.78 10/07/2024 11:36 AM CDT Plan of Treatment Upcoming Encounters Date Type Department Care Team (Late st Contact Info) Description 04/12/2025 11:40 AM CARPENTER HELPER Office Visit [facility] Medical Group Multispecialty Care - [address] Suite [facility] [place] [address] Facundo Willoughby MD [address] [place] [address] Health Maintenance Due Date Last Done Comments Colorectal Cancer Screening Colonoscopy (10 Years) 1958 Hepatitis C 1976 DTaP, Tdap and Td Vaccines ( 1 - Tdap) 1977 Pneumococcal Vaccine: 50+ Years (1 of 2 - PCV) 1977 Zoster Vaccines (1 of 2) 2008 RSV Immunization or 60+ Years (1 - Risk 60-74 years 1-dose series) 2018 Dexa Scan (General) 10/18/2023 COVID-19 Vaccine ( - 2023-2 5 season) 2023 06/16/2020, 06/16/2020, 05/26/2020 PHQ-2 (Physician [place]) 02/26/2024 10/21/2023 Mammogram Screening 01/21/2026 01/22/2024, 12/23/2021 Meningococcal B [...] upon discharge from hospital Lifestyle Peggy Galarza senior private client advisor Procedure Name Priority Date/Time Associated Diagnosis Comments CT LUNG SCREENING Routine 07/31/2024 10: 15 AM CDT Cigarette nicotine dependence in remission MG SCREENING W ZAFAR JOVANNY DIGI Routine 01/22/2024 10:56 AM CARPENTER HELPER Encounter for screening mammogram for malignant neoplasm of breast from Last 3 Months or Most Recently Relevant to Health Maintenance Results * CT LUNG SCREENING (07/31/2024 10:15 AM CDT) Anatomical Region Laterality Modality Chest Computed Tomogra phy 07/31/2024 2:18 PM CDT Impressions 07/31/2024 2:24 PM CDT IMPRESSION: 1. LUNG-RADS category 2: Benign appearance or behavior-nodules with a very low likelihood of becoming a clinically active cancer due to size or lack of growth. 2. LUNG-RADS category S: Negative, no new/unknown potentially significant incidental findings requiring urgent additional evaluation. 3. Other incidental findings as above. RECOMMENDATIONS: Follow-up LDCT Chest in 12 months (on or around 07/31/2024). Ordered By: FACUNDO WILLOUGHBY Interpreted By: Gurpreet Nelson, 07/31/2024 2:18 PM Narrative 07/31/2024 2:24 PM CDT [place] [address] EXAM: LUNG SCREENING LOW-DOSE CT THORAX WITHOUT CONTRAST DATE: 07/31/2024 10:04 AM HISTORY: Asymptomatic patient meeting NCCN high-risk criteria for lung screening. COMPARISON: 08/20/2023 TECHNIQUE: Noncontrast, helical, low-dose CT (LDCT) chest per standard departmental protocol. A dose lowering technique was used for this procedure, which may include, but is not limited to, dose reduction technique, automated exposure control, iterative reconstruction, ALARA (As Low As Reasonably Achievable), or Image Gently techniques. FINDINGS: Lung Screening Specific (LUNG-RADS): 11 mm nodule right lung apex axial image 16. Stable. LungRADS 2. 3.9 mm right lower lobe nodule axial image 113. Stable. LungRADS 2. 3.1 mm left upper lobe nodule axial image 24. Stable. LungRADS 2. Potentially Significant Incidentals (LUNG-RADS category S): [None.] Pulmonary Incidentals: Mild upper lobe predominant centrilobular emphysema. Mild right basilar atelectasis, chronic and stable. Other Incidentals: Atherosclerosis. Scattered degenerative changes of the spine. Procedure Note Gurpreet Nelson MD - 07/31/[address] [facility] [address] EXAM: LUNG SCREENING LOW-DOSE CT THORAX WITHOUT CONTRAST DATE: 07/31/2024 10:04 AM HISTORY: Asymptomatic patient meeting NCCN high-risk criteria for lungscreening. COMPARISON: 08/20/2023 TECHNIQUE: Noncontrast, helical, low-dose CT (LDCT) chest per standarddepartmental protocol. A dose lowering technique was used for this procedure, which may include,but is not limited to, dose reduction technique, automated exposurecontrol, iterative reconstruction, ALARA (As Low As ReasonablyAchievable), or Image Gently techniques. FINDINGS: Lung Screening Specific (LUNG-RADS): 11 mm nodule right lung apex axial image 16. Stable. LungRADS 2. 3.9 mm right lower lobe nodule axial image 113. Stable. LungRADS 2. 3.1 mm left upper lobe nodule axial image 24. Stable. LungRADS 2. Potentially Significant Incidentals (LUNG-RADS category S): [None.] Pulmonary Incidentals: Mild upper lobe predominant centrilobularemphysema. Mild right basilar atelectasis, chronic and stable. Other Incidentals: Atherosclerosis. Scattered degenerative changes of thespine. IMPRESSION: 1. LUNG-RADS category 2: Benign appearance or behavior-nodules with a verylow likelihood of becoming a clinically active cancer due to size or lackof growth. 2. LUNG-RADS category S: Negative, no new/unknown potentially significantincidental findings requiring urgent additional evaluation. 3. Other incidental findings as above. RECOMMENDATIONS: Follow-up LDCT Chest in 12 months (on or around07/31/2024). Ordered By: FACUNDO WILLOUGHBY Interpreted By: Gurpreet Nelson, 07/31/2024 2:18 PM us Facundo Willoughby MD CT Final Resul t * MG SCREENING W ZAFAR JOVANNY DIGI (01/22/2024 10:56 AM CARPENTER HELPER) Anatomical Region Laterality Modality Breast Bilateral Mammography 01/22/2024 2:30 PM CARPENTER HELPER Impressions 01/22/2024 2:34 PM CARPENTER HELPER IMPRESSION: No significant interval change. No mammographic evidence of malignancy. RECOMMENDATION: Routine ScreeningBilateral OVERALL IMAGING ASSESSMENT: ACR BI-RADS 2 - BENIGN FINDING(S). Ordered By: MICHAEL KEMP Interpreted By: Jerardo Hinkle, 01/22/2024 2:30 PM Narrative 01/22/2024 2:34 PM CARPENTER HELPER [facility] [place] [address] EXAMINATION: MG SCREENING W ZAFARLucila PETTY DIGI INDICATIONS: Screening TECHNIQUE: Digital full field [...] asymmetry or architectural distortion. No axillary adenopathy. Michael Kemp NP MAMMO Final Result from Last 3 Months or Most Recently Relevant to Health Maintenance Insurance [facility] Advance Directives * Full Code (Latest Code Status on File) Date Activated Date Inactivated Comments 01/28/2023 1:54 PM 02/06/2023 3:55 PM Care Teams Grocery Worker Relationship Specialty Start Date End Date Michael Kemp NP [address] [place] [address] PCP - General NURSE PRACTITIONER 01/22/24
[2024-10-19 19:31] LABS: Alanine Aminotransferase 19 U/L (6-35); Albumin Level 4.1 g/dL (3.5-5.1); Alkaline Phosphatase 113 U/L (38-126); Anion Gap 6 mmol/L (4-12); Aspartate Amino Transferase 36 U/L (14-36); Bilirubin,Total 0.6 mg/dL (0.2-1.3); Blood Urea Nitrogen 22 mg/dL (7-17); Calcium 9.4 mg/dL (8.4-10.2); Carbon Dioxide 29 mmol/L (22-30); Chloride 106 mmol/L (98-107); Cholesterol 184 mg/dL (0-200); Estimated Glomerular Filt Rate 47; Glucose 93 mg/dL (65-110); HDL Direct 35 mg/dL; Potassium 4.8 mmol/L (3.4-5.0); Sodium 141 mmol/L (137-145); Total Protein 7.8 g/dL (6.3-8.2); Triglycerides 155 mg/dL (<150)
[2024-10-19 20:06] LABS: Thyroid Stimulating Hormone 2.250 uIU/mL (0.465-4.680)
[2024-10-19 20:25] LABS: Vitamin B12 974.0 pg/mL (239-931)
== END 2024-10-19 14:45 | disposition home or self-care (01) ==
LOC: ANHBWCLAB 14:45
PROVIDERS: PCP Nurse Practitioner Adult Health; Visit Provider Nurse Practitioner Adult Health
DX: I50.9 Heart failure, unspecified (principal); E07.9 Disorder of thyroid, unspecified
CPT/HCPCS: 36415; 80053; 80061; 82607; 84443

== ENCOUNTER 2024-11-09 11:31 | Outpatient (CLI) | payer MEDICARE, SELFPAY ==
--- OUTSIDE RECORDS SUMMARY | 2018-10-30 10:30 | XMS_ITS | Continuity of Care Document ---
Author Organization [facility] Address [address] [place] [address] [place] [address] Phone Care Team Providers Care Life Insurance Actuary Name Role Phone Mandeep Gentile MD Unavailable Unavailable Allergies, Adverse Reactions, Alerts Substance Reaction Status Criticality Sulfa (Sulfonamide Antibiotics) Active No Information Medications Medication Instructions Dosage Effective Dates (start - stop) Status Comments Synthroid 125 mcg tablet take 1 tablet by oral route every day 125 MCG - Active Xanax 1 mg tablet take 1 tablet by oral route every bedtime as needed 1 MG - Active PRn for insomnia, avoid driving or operate machines Vistaril 25 mg capsule take 1 capsule by oral route every 6 - 8 hours as needed 25 MG - Active PRN for HIVE o r itching Vitamin D2 50,000 unit capsule take 1 capsule by oral route every week - Active Procedures Procedure Date OFFICE/OUTPATIENT VISIT, EST OFFICE/OUTPATIENT VISIT, EST OFFICE/OUTPATIENT VISIT, EST OFFICE/OUTPATIENT VISIT, EST PREV VISIT, NEW, AGE 40-64 OFFICE/OUTPATIENT VISIT, NEW Advance Directives Directive Yes / No Effective Date File Name No Information Encounters Encounter Description Practice Location Reason(s) For Visit Diagnoses Date Provider Providers Copied on Encounter OFFICE/OUTPA TIENT VISIT, EST [facility], [address] [place], [place] [address]e [place], [id number], [place] tel:[phone] [facility] thyroid1 (chief complaint) thyroid1 (chief complaint) KEREN (chief complaint) ferritin1 (chief complaint) tobacco1 (chief complaint) HypothyroidismRaise d antibody titerDisorder of iron metabolism, unspecifiedInsomnia Tobacco use Sep-0 9 Seferino Kaufman. [address], [place], [place], [address] , [place]. tel:[phone] Referring Provider: Connie Amaya Herrin [facility] A, [place], [place], [address]. tel:[phone] OFFICE/OUTPA TIENT VISIT, [facility], [address], [place], [place], [id number], [place] tel:[phone] [facility] hypothyroi dism1 (chief complaint) anxiety1 (chief complaint) ferritin1 (chief complaint) KEREN (chief complaint) hive1 (chief complaint) Raised antibody titerHypothyroidism UrticariaDisorder of iron metabolism, unspecifiedInsomnia Elder- 9 Seferino Jennings [address], [place], [place], [address] , [place]. tel:[phone] [facility] [place], [place], [address]. tel:[phone] OFFICE/OUTPA TIENT VISIT, [facility], [address] [place], [address], [place] tel:[phone] [facility] thyroid1 (chief complaint) rash1 (chief complaint) D (chief complaint) Raised antibody titerHypothyroidism Disorder of iron metabolism, unspecifiedVitamin D deficiency, unspecified May-0 9 Seferino Jennings [address], [place], [place], [address] , [place]. tel:[phone] Referring Provider: Connie Amaya Herrin [facility] A, [place], [place], [id number]. tel:[phone] OFFICE/OUTPA TIENT VISIT, [facility], [address] [place], [address], [place] tel:[phone] [facility] thyroid1 (chief complaint) rash1 (chief complaint) HypothyroidismRashE ncounter for screening for other viral diseases 9 Seferino Kaufman. [address], [place], [place], [address] , [place]. tel:[phone] Referring Provider: Mandeep Gentile, [address], [place], [place], [address]. tel:[phone] PREV VISIT, NEW, AGE 40-64 [facility], [address], [place], [place], [address], [place] tel:[phone] [facility] PHysical (chief complaint) Encounter for general adult medical exam w abnormal findingsEmphysemaHy pothyroidismInsomni Cordell Mar-0 8-201 9 Seferino Kaufman. [address], [address], [place], [place], [address] , [place]. tel:[phone] Family History Family Member Type Diagnosis Age At Onset Brother Problem (finding) of ALS (Cause Of D eath) 42 Father Problem (finding) of unknown reason (Cause Of ) 89 Mother Problem (finding) Alive and well Payers Payer name Insurance type Covered green party ID Authoriza tion(s) No Information Social History Type Description Quantity Date Captured Comments Alcohol Use Details Caffeine Use Details Unknown Tobacco Use Status Heavy cigarette smok er (20-39 cigs/day) Smoking Status Heavy tobacco smoker Smoking Tobacco Use Details Cigarette: Age Started: 12, Years Used 43 Cigarette: 1 Packs per day, Pack Year: 45 Sex Female Vital Signs Date / Time: Height Weight BMI Pulse Rate Blood Pressure Temperature Respiratory Rate Body Surface Area Head Circumference BMI percentile Pulse Ox Inhaled Ox 4:37 PM 62.00 in 167.80 lbs 30.6 9 kg/m eter (2) 90 /min 122/73 mm[Hg] 98.4 F 16 /min Chief Complaint And Reason For Visit From encounter dated '10/30/2018 15:30'. thyroid1 (chief complaint). Description: Pt has chronic insomnia Pt takes xanax qhs PRN and doing ok, Pt denies any snoring or any trouble with sleeping at night thyroid1 (chief complaint). Description: Pt has chronic thyroid disease. Pt is taking 125 synthroid. Her TSH is normal. Pt denies any fatigue, chest pain, palpitation KEREN (chief complaint). Description: Pt has positive KEREN. Pt saw power press tender but she deferred anyfurther work up due to expanse?? Pt denies any facial rash or joint pain ferritin1 (chief complaint). Description: Pt has persistently elevated ferritin. Pt denies any abd pain tobacco1 (chief complaint). Description: Pt continues to smoke Pt denies any hemoptysis, sob or cough Plan Of Treatment Date Type Action Status Goal Special diet education compl eted Goal Tobacco cessation counseling completed Goal Tobacco cessation counseling completed Goal Special diet education compl eted Goal Special diet education compl eted Goal Tobacco cessation counseling completed Goal Tobacco cessation counseling completed Goal Special diet education compl eted Goal Tobacco cessation counseling completed Goal Special diet education compl eted Referral Ordered: Rheumatology (related to Raised antibody titer) ordered Referral Ordered: Referrals: Rheumatology. Evaluate and treat ordered History Of Present Illness Encounter Date Complaint History Of Prese nt Illness thyroid1 Pt has chronic t hyroid disease. Pt is taking 125 synthroid. Her TSH is normal. Pt denies any fatigue, chest pain, palpitation thyroid1 Pt has chronic i nsomnia Pt takes xanax qhs PRN and doing ok, Pt denies any snoring or any trouble with sleeping at night KEREN Pt has positive KEREN. Pt saw power press tender but she deferred any further work up due to expanse?? Pt denies any facial rash or joint pain ferritin1 Pt has persisten tly elevated ferritin. Pt denies any abd pain tobacco1 Pt continues to smoke Pt denies any hemoptysis, sob or cough hypothyroidism1 Pt has low thyro id. pt takes synthroid. She has slightly high thyroid Pt denies any chest pain or palpitation. Pt feels slightly more fatigue since taking lower dose of synthroid Pt denies any dysphagia anxiety1 Pt takes xanax q hs PRn for insomnia pt denies any snoring Pt denies any worsening fatigue ferritin1 Pt has borderlin e ferritin Pt does not have polycythemia. Pt denies any abd pain. Pt denies any jaundice. Pt does not drink alcohol more than socially KEREN Pt has positive KEREN. 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 Pt has occasional HIVe without any trouble with swallowing or breathing Pt used to have some vistaril to use PRn Pt never had any anaphylactic reaction Pt has not had HIVE for over 2 years Pt wants some vistaril PRn thyroid1 Pt has autoimmun e thyroid disease, Pt denies any dysphagia. Pt denies any palpable thyroid nodule. pt has elevated TPO. Pt is taking 137 mcg of synthroid. Pt was on 175 mcg synthroid for long time and she actually feels fatigue with lower dose. Pt denies any chest pain or palpitation rash1 Pt has malar cathy h. Pt has positive KEREN. Pt denies any joint pain. Pt does not have any family history of lupus or other CTD D Pt has low vitam in d. Pt does not want to do bone density Pt denies any frature thyroid1 Pt has low thyro id. Pt has been taking 175 mcg daily for more than one year. Pt had her thyroid level checked almost one year ago which showed over replaced thyroid. Pt feels jittery., occasional blurred vision, some palpitation. Pt states that her previous MD never decreased her thyroid dose. Pt denies any chest pain, or headache . rash1 Pt has facial ra sh and also rash of palm on hand for several years. Pt denies any itching PHysical Pt needs annual physical. Pt has chronic low thyroid. Pt takes synthroid 175 mcg daily. Pt denies any thyroid nodule or dysphagia. Pt chronic anxiety and insomnia Pt takes xanax qhs PRN and doing ok. Pt denies any depression or any suicidal thought. Pt denies any snoring. Pt denies any trouble with breathing at night. Pt has COPD. Pt c/o wheezing and sob occasionally. Pt uses albuterol neb about 1-2 per months. Pt does not feel sob very often. Instructions Date Instruction Additional Infor mation Special diet education Related t o Body mass index (BMI) 30.0-30.9, adult Quit smoking Related to Hypot hyroidism Special diet education Related t o Body mass index (BMI) 29.0-29.9, adult Quit smoking Related to Raise d antibody titer Quit smoking Related to Hypot hyroidism Special diet education Related t o Body mass index (BMI) 29.0-29.9, adult Quit smoking Related to Raise d antibody titer Special diet education Related t o Body mass index (BMI) 29.0-29.9, adult Increase physical activity Relat ed to Hypothyroidism Special diet education Related t o Body mass index (BMI) 29.0-29.9, adult Assessments Type Assessment Date assessment Hypothyroidism assessment Raised antibody titer 9 assessment Disorder of iron metabolism, uns pecified assessment Insomnia assessment Tobacco use Mental Status Date Cognitive Assessment Orientation - [place] ed to time, place, person, situation.
--- NOTE | ~2024-11-09 | XR_ITS ---
XR abdomen/kub 1V 11/09/2024 12:03 INDICATION: Mid abdominal pain TECHNIQUE: KUB COMPARISON: None FINDINGS: Bowel gas pattern is normal. There is an oval radiodensity left upper abdomen consistent with bowel content. Moderate colonic fecal loading. There is no evidence of free air, mass, organomegaly, ascites or obstruction. No abnormal calculi are seen. The bones appear intact. IMPRESSION: 1: No acute abdominal abnormality identified. Reviewed, dictated and finalized at location O.
[2024-11-09 12:45] LABS: Hematocrit 44.1 % (37.0-47.0); Hemoglobin 13.9 g/dL (12.0-15.0); Immature Granulocyte Percent A 0.5 % (0-0.5); Lymphocytes Absolute Auto 1.32 K/mm3 (0.9-3.2); Mean Corpuscular HGB Conc 31.5 g/dl (32-36); Mean Corpuscular Hemoglobin 29.6 pg (26-34); Mean Corpuscular Volume 93.8 fl (80-100); Nucleated Red Blood Cells Absolute Auto 0.000 K/mm3 (0.0-0.012); Nucleated Red Blood Cells Perc 0.0 % (0.0-0.2); Platelet Count Result 256 k/mm3 (150-375); Red Blood Count 4.70 M/mm3 (4.2-5.4); White Blood Count 8.7 K/mm3 (4.5-10.0)
[2024-11-09 13:05] LABS: Iron 53 ug/dL (37-170)
[2024-11-09 13:06] LABS: INR 1.1; Prothrombin Time 14.2 Seconds (11.1-14.7)
[2024-11-09 13:09] LABS: Alanine Aminotransferase 19 U/L (6-35); Albumin Level 4.4 g/dL (3.5-5.1); Alkaline Phosphatase 109 U/L (38-126); Anion Gap 10 mmol/L (4-12); Aspartate Amino Transferase 23 U/L (14-36); Bilirubin,Total 0.5 mg/dL (0.2-1.3); Blood Urea Nitrogen 27 mg/dL (7-17); Calcium 9.1 mg/dL (8.4-10.2); Carbon Dioxide 22 mmol/L (22-30); Chloride 107 mmol/L (98-107); Estimated Glomerular Filt Rate 50; Glucose 99 mg/dL (65-110); Potassium 4.1 mmol/L (3.4-5.0); Sodium 139 mmol/L (137-145); Total Protein 8.0 g/dL (6.3-8.2)
[2024-11-09 13:15] LABS: Percent Iron Saturation 20 % (20-50)
[2024-11-09 13:18] LABS: Immunoglobulin G 1247 mg/dL (700-1600)
[2024-11-09 13:38] LABS: Hepatitis B Surface Antigen Negative (Negative)
[2024-11-09 13:44] LABS: HAV RESULT Negative (Negative); Hepatitis B Core IgM Result Negative (Negative)
[2024-11-09 13:47] LABS: Ferritin 194.00 ng/mL (11.1-264)
--- OUTSIDE RECORDS SUMMARY | 2024-11-09 13:53 | XMS_ITS | Clinical Summary ---
Author Organization [facility] Address [facility] [place] [address] Care Team Providers Care Doula Name Role Phone Michael Kemp NP Primary Care Provider [phone] Allergies Active Allergy Reactions Criticality Noted Date [...] for Shortness of breath. 360 mL 1 3 Active Additional Information Patient not taking.Reported on 10/07/2024 furosemide (LASIX) 40 MG tablet Take 1 tablet (40 mg total) by mouth daily. 30 tablet 1 3 Active potassium chloride CR (K-TAB) 20 MEQ tablet Take 1 tablet (20 mEq total) by mouth daily. 30 tablet 1 3 Active levothyroxine (SYNTHROID) 125 MCG tablet Take 1 tablet (125 mcg total) by mouth daily. Active ALPRAZolam (XANAX) 1 MG tablet Take 1 tablet (1 mg total) by mouth daily. 4 Active gabapentin (NEURONTIN) 300 MG capsule Take 1 capsule (300 mg total) by mouth every evening. Active empagliflozin (JARDIANCE) 10 MG tablet Take 1 tablet by mouth once daily 90 tablet 1 5 Active ipratropium-alb uterol (DUONEB) 0.5-2.5 (3) MG/3ML Solution Acti ve budesonide-glyc opyrrolate-form oterol (BREZTRI AEROSPHERE) 160-9-4.8 MCG/ACT inhalerIndicati ons:Centrilobul ar emphysema ([facility]) Inhale 2 puffs into the lungs 2 (two) times daily. Rinse and spit after each use 11 g 3 5 Active albuterol sulfate HFA 108 (90 Base) MCG/ACT inhalerIndicati ons:Centrilobul ar emphysema ([facility]) Inhale 2 puffs into the lungs every 6 (six) hours as needed for Wheezing. 18 g 1 5 Active Active Problems Problem Noted Date Diagnosed Date Asthma ([facility]) 08/22/2023 Bronchitis 08/22/2023 Abdominal pain 08/22/2023 Chest pain 08/22/2023 Hemorrhoids 08/22/2023 Hypothyroidism 08/22/2023 Stress 08/22/2023 Urticaria 08/22/2023 Chronic obstructive pulmonary disease ([facility]) 08/22/2023 Restless legs 07/10/2023 Vitamin D deficiency 07/10/2023 Otalgia of left ear 05/17/2023 Edema of lower extremity 04/15/2023 Chronic respiratory failure with hypoxia ([facility]) 03/21/2023 Centrilobular emphysema ([facility]) 2023 Cigarette nicotine dependence in remission 03/21 Abnormal finding on lung imaging 03/21/2023 Excessive daytime sleepiness 03/21/2023 Spasm 02/10/2023 COPD exacerbation ([facility]) 01/28/2023 Acute urinary tract infection 01/21/2023 Insomnia 05/11/2022 Nicotine dependence 05/11/2022 Colon cancer screening 05/02/2022 Overview (05/02/2022): Added automatically from request for surgery [id number] Encounters Date Type Department Care Team Description 11/04/2024 2:32 PM CDT - 11/04/2024 11:59 PM CDT Hospital Encounter [facility] [address] [place] [address] Cj Smith, Discharge Disposition: Home or Self Care (Routine Discharge) 11/04/2024 Travel 10/27/2024 Telephone [facility] [address], [address] [place] [address] Monroe Castillo MD Information ([facility]) 10/23/2024 4:19 PM CDT - 10/23/2024 11:59 PM CDT Hospital Encounter [facility] [place] [address] Michael Kemp NP Discharge Disposition: Home or Self Care (Routine Discharge) 10/23/2024 Travel 10/07/2024 11:40 AM CDT Office Visit [facility] [address] [place] [id number] Facundo Pereira MD Follow Up 10/07/2024 Travel from Last 3 Months Immunizations Immunization [...] oz p ure alcohol) 1 glass loc/day [facility] Utilities Answer Date Recorded In the past 12 months has [employer], or [employer] threatened to shut off services in your [...] place to sleep or slept in a retirement (including now)? No 01/28/2023 Comments Unknown Sex [...] Care Team (Late st Contact Info) Description 01/22/2025 3:00 PM SMALL BUSINESS DIRECTOR Appointment [facility] [place] [address] Michael Kemp NP [address] [place] [address] 03/05/2025 12:00 PM SMALL BUSINESS DIRECTOR Office Visit [facility] [phone] Monroe Castillo MD [address] [facility] [address] [place] [address] 04/12/2025 11:40 AM SMALL BUSINESS DIRECTOR Office Visit [facility] Multispecialty Care - [facility] [address] [facility] [place] [id number] Facundo Pereira MD 3rd [facility] [address] [place] [address] 08/09/2025 12:30 PM CDT [place]ment [place] [address] Facundo Pereira MD [address] [address] 08/16/2025 11:00 AM CDT Appointment [facility] [place] [address] Facundo Pereira MD [address] [address] 08/16/2025 12:00 PM CDT Appointment [facility] [place] [address] Facundo Pereira MD [address] [address] Health Maintenance Due Date Last Done Comments Colorectal Cancer Screening Colonoscopy (10 Years) 1958 Hepatitis C 1976 DTaP, Tdap and Td Vaccines ( 1 - Tdap) 1977 Pneumococcal Vaccine: 50+ Years (1 of 2 - PCV) 1977 Zoster Vaccines (1 of 2) 2008 RSV Immunization or 60+ Years (1 - Risk 60-74 years 1-dose series) 2018 Annual Medicare Wellness Visit 10/18/2023 Dexa Scan (General) 10/18/2023 PHQ-2 (Physician [place]) 02/26/2024 10/21/2023 COVID-19 Vaccine (4 - 2024-2 6 season) 2024 06/16/2020, 06/16/2020, 05/26/2020 Mammogram Screening 01/21/2026 01/22/2024, 12/23/2021 Meningococcal B [...] ADLs upon discharge from hospital Lifestyle Peggy Galarza, rug clipper Procedure Name Priority Date/Time Associated Diagnosis Comments US ABD LIMITED Routine 11/04/2024 3:31 PM CDT Upper abdominal pain, unspecified CT ABD+PEL WO CON Routine 10/23/2024 4:3 4 PM CDT Abdominal distension (gaseous) Unspecified abdominal pain MG SCREENING W ZAFAR JOVANNY DIGI Routine 01/22/2024 10:56 AM SMALL BUSINESS DIRECTOR Encounter for screening mammogram for malignant neoplasm of breast from Last 3 Months or Most Recently Relevant to Health Maintenance Results * US ABD LIMITED (11/04/2024 3:31 PM CDT) Anatomical Region Laterality Modality Abdomen Ultrasound 11/04/2024 3:28 PM CDT Impressions 11/04/2024 4:18 PM CDT IMPRESSION: 1. Diffuse hepatic steatosis. Hepatomegaly. 2. Tiny layering cholelithiasis and/or biliary sludge without any evidence of acute cholecystitis. 3. Normal sonographic appearance of the right kidney and visualized portions of the pancreas. Preliminary: Michael Mcknight MD11/04/2024 3:34 PM The attending radiologist has reviewed the image(s) and agrees with the content of this report. Referred By: CJ SMITH Interpreted By: Michael Mcknight MD, 11/04/2024 3:28 PM Narrative 11/04/2024 4:18 PM CDT [facility] [address] [place], [place] [address] [facility] [address] [place] [address] EXAMINATION: US ABD LIMITED DATE: 11/04/2024 2:40 PM HISTORY: 64 years Female. upper abdominal pain unspeciifed COMPARISON: 10/23/2024 CT. TECHNIQUE: An ultrasound examination of right upper quadrant was performed to assess grayscale appearance, color Doppler flow characteristics, and spectral waveform analysis. FINDINGS: Pancreas: The visualized portions of the proximal pancreas are within normal limits. The distal most portions of the pancreas are not well seen due to overlying bowel gas. Liver: Increased in size measuring approximately 21.5 cm. There is diffuse hepatic steatosis. There is limited evaluation for focal hepatic masses given the degree of increased echogenicity. The main portal vein and hepatic veins are patent with appropriate direction of flow. Biliary tree: No biliary ductal dilatation. Gallbladder: No gallbladder distention. There are multiple tiny layering calculi and/or sludge. Sonographic Wang sign is negative. No gallbladder wall thickening. Right kidney: Normal in size measuring 10.2 cm. No right hydronephrosis, mass, or stones Procedure Note Mario Jose MD - 11/04/[address] [address] [facility] [address] [place] [address] EXAMINATION: US ABD LIMITED DATE: 11/04/2024 2:40 PM HISTORY: 64 years Female. upper abdominal pain unspeciifed COMPARISON: 10/23/2024 CT. TECHNIQUE: An ultrasound examination of right upper quadrant wasperformed to assess grayscale appearance, color Doppler flowcharacteristics, and spectral waveform analysis. FINDINGS: Pancreas: The visualized portions of the proximal pancreas are withinnormal limits. The distal most portions of the pancreas are not well seendue to overlying bowel gas. Liver: Increased in size measuring approximately 21.5 cm. There is diffusehepatic steatosis. There is limited evaluation for focal hepatic massesgiven the degree of increased echogenicity. The main portal vein andhepatic veins are patent with appropriate direction of flow. Biliary tree: No biliary ductal dilatation. Gallbladder: No gallbladder distention. There are multiple tiny layeringcalculi and/or sludge. Sonographic Wang sign is negative. No gallbladderwall thickening. Right kidney: Normal in size measuring 10.2 cm. No right hydronephrosis,mass, or stones IMPRESSION: 1. Diffuse hepatic steatosis. Hepatomegaly. 2. Tiny layering cholelithiasis and/or biliary sludge without any evidenceof acute cholecystitis. 3. Normal sonographic appearance of the right kidney and visualizedportions of the pancreas. Preliminary: Michael Mcknight MD11/04/2024 3:34 PM The attending radiologist has reviewed the image(s) and agrees with thecontent of this report. Referred By: CJ SMITH Interpreted By: Michael Mcknight MD, 11/04/2024 3:28 PM us Cj Smith DO ULTRASOUND Final Resul t * CT ABD+PEL WO CON (10/23/2024 4:34 PM CDT) Anatomical Region Laterality Modality Abdomen Computed Tomogra phy 10/27/2024 5:40 AM CDT Impressions 10/27/2024 5:44 AM CDT IMPRESSION: ===== 1. Riddhi mesentery throughout the central abdomen with multiple borderline enlarged lymph nodes. This has similar appearance to prior exam. No adjacent bowel abnormality or fluid collection. 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 2. Metallic density 16 mm foreign body in the distal small bowel lumen. Clinical correlation for ingested foreign body versus possible capsule endoscopy. 3. Diverticular disease with no diverticulitis. 4. Atherosclerotic aorta. Referred By: MICHAEL KEMP Interpreted By: Victor M Pang MD, 10/27/2024 5:40 AM Narrative 10/27/2024 5:44 AM CDT [facility] [address] [place], [place] [address] EXAMINATION: CT Abdomen and Pelvis without contrast EXAM DATE/TIME: 10/23/2024 4:22 PM REASON FOR EXAM: Abdominal distension (gaseous) COMPARISON: CT abdomen and pelvis 02/13/2023 TECHNIQUE: Axial CT images of the abdomen and pelvis are obtained without the use of IV contrast agent. Subsequent coronal and sagittal reformatted sequences are created for evaluation. A dose lowering technique was used for this procedure, which may include, but is not limited to, dose reduction technique, automated exposure control, iterative reconstruction, ALARA (As Low As Reasonably Achievable), or Image Gently techniques. FINDINGS: Heart size upper limits normal. No pericardial effusion. Lung bases show minimal atelectasis and are otherwise clear. No pleural effusion. Liver and spleen normal in size and surface contour. Gallbladder pancreas and adrenal glands unremarkable. Left renal cystic lesion measures near water density. No follow-up imaging is recommended per consensus recommendation based on imaging criteria.. No hydronephrosis on either side. Abdominal aorta normal in caliber throughout with moderate calcifications. Riddhi mesentery throughout the central abdomen with multiple borderline enlarged lymph nodes. This has similar appearance to prior exam. No adjacent bowel abnormality or fluid collection. Bowel is normal in caliber throughout. No evidence of obstruction. Minimal diverticular disease with no diverticulitis. Bladder contours are smooth. Uterus and adnexal unremarkable. Appendix normal. Bone level imaging shows no destructive osseous lesions. Multilevel minimal endplate degenerative changes are seen. No calcifications in the bladder. Metallic density oval-shaped 16 mm foreign body in the distal small bowel lumen. ===== Procedure Note Victor M Pang MD - 10/27/2024 [facility] [address] [place], [place] [address] EXAMINATION: CT Abdomen and Pelvis without contrast EXAM DATE/TIME: 10/23/2024 4:22 PM REASON FOR EXAM: Abdominal distension (gaseous) COMPARISON: CT abdomen and pelvis 02/13/2023 TECHNIQUE: Axial CT images of the abdomen and pelvis are obtained withoutthe use of IV contrast agent. Subsequent coronal and sagittal reformattedsequences are created for evaluation. A dose lowering technique was usedfor this procedure, which may include, but is not limited to, dosereduction technique, automated exposure control, iterative reconstruction,ALARA (As Low As Reasonably Achievable), or Image Gently techniques. FINDINGS: Heart size upper limits normal. No pericardial effusion. Lungbases show minimal atelectasis and are otherwise clear. No pleuraleffusion. Liver and spleen normal in size and surface contour. Gallbladder pancreasand adrenal glands unremarkable. Left renal cystic lesion measures nearwater density. No follow-up imaging is recommended per consensusrecommendation based on imaging criteria.. No hydronephrosis on eitherside. Abdominal aorta normal in caliber throughout with moderatecalcifications. Riddhi mesentery throughout the central abdomen withmultiple borderline enlarged lymph nodes. This has similar appearance toprior exam. No adjacent bowel abnormality or fluid collection. Bowel isnormal in caliber throughout. No evidence of obstruction. Minimaldiverticular disease with no diverticulitis. Bladder contours are smooth.Uterus and adnexal unremarkable. Appendix normal. Bone level imagingshows no destructive osseous lesions. Multilevel minimal endplatedegenerative changes are seen. No calcifications in the bladder.Metallic density oval-shaped 16 mm foreign body in the distal small bowellumen. ===== IMPRESSION: ===== 1. Riddhi mesentery throughout the central abdomen with multipleborderline enlarged lymph nodes. This has similar appearance to priorexam. No adjacent bowel abnormality or fluid collection. Findings may besecondary to mesenteric panniculitis. 2. Metallic density 16 mm foreign body in the distal small bowel lumen.Clinical correlation for ingested foreign body versus possible capsuleendoscopy. 3. Diverticular disease with no diverticulitis. 4. Atherosclerotic aorta. Referred By: MICHAEL KEMP Interpreted By: Victor M Pang MD, 10/27/2024 5:40 AM Michael Kemp LINUX SUPPORT ENGINEER CT Final Result * MG SCREENING W ZAFAR JOVANNY DIGI (01/22/2024 10:56 AM SMALL BUSINESS DIRECTOR) Anatomical Region Laterality Modality Breast Bilateral Mammography 01/22/2024 2:30 PM SMALL BUSINESS DIRECTOR Impressions 01/22/2024 2:34 PM SMALL BUSINESS DIRECTOR IMPRESSION: No significant interval change. No mammographic evidence of malignancy. RECOMMENDATION: Routine ScreeningBilateral OVERALL IMAGING ASSESSMENT: ACR BI-RADS 2 - BENIGN FINDING(S). Ordered By: MICHAEL KEMP Interpreted By: Jerardo Hinkle, 01/22/2024 2:30 PM Narrative 01/22/2024 2:34 PM SMALL BUSINESS DIRECTOR [facility] [place] [address] EXAMINATION: MG SCREENING W ZAFAR JOVANNY DIGI [...] Most Recently Relevant to Health Maintenance Insurance MEDICAID [facility] Advance Directives * Full Code (Latest Code Status on File) Date Activated Date Inactivated Comments 01/28/2023 1:54 PM 02/06/2023 3:55 PM Care Teams Doula Relationship Specialty Start Date End Date Michael Kemp NP [address] [place] [address] PCP - General NURSE PRACTITIONER 01/22/24
--- OUTSIDE RECORDS SUMMARY | 2024-11-09 13:53 | XMS_ITS | Encounter Summary ---
Author Organization [facility] Address [facility] [place] [address] Care Team Providers Care Aerospace Manager Name Role Phone Enriqueta Clinton MD Primary Care Provider Danny Navarrete MD Primary Care Provider [phone] Cindy Kemp NP Primary Care Provider Encounter Details Date Type Department Care Team (Late st Contact Info) Description 02/28/2023 Abstract [facility]-[address] [address] Evangelist Lu [place] Social History Tobacco Use Types Packs/Day Years Used Date Smoking Tobacco: Every Day Cigarettes 1 45 Smokeless Tobacco: Never Alcohol Use Standard Drinks/Week Comments Yes 0 (1 standard drink = 0.6 oz pur e alcohol) 1 glass loc/day [facility] Utilities Answer Date Recorded In the past 12 months has [employer], gas, oil, or water [employer] threatened to shut off services in your [...] place to sleep or slept in a chcf (including now)? No 01/28/2023 Comments Unknown Sex [...] st Contact Info) Description 01/22/2025 3:00 PM CIRCUIT MANAGER Appointment [facility] [place] [address] Cindy Kemp NP [address] [place] [address] 03/05/2025 12:00 PM CIRCUIT MANAGER Office Visit [facility] [phone] Monroe Castillo MD Three [facility] [address] [place] [address] 04/12/2025 11:40 AM CIRCUIT MANAGER Office Visit [facility] Mult[facility]pecialty Care - [facility] [address] [facility] [place] [phone] Facundo Pereira MD 3rd [facility] [address] [place] [address] 08/09/2025 12:30 PM CDT [place]ment [place] [address] Facundo Pereira MD [address] [address] 08/16/2025 11:00 AM CDT Appointment [facility] [place] [place] [address] Facundo Pereira MD [address] [place] [address] 08/16/2025 12:00 PM CDT Appointment [facility] [place] [place] [address] Facundo Pereira MD [address] [place] [address] documented as of this encounter Goals Goal Patient Goal Type Associated Problems Recent Progress Patient-Stated? Author Patient will return to prior living situation and remain independent in ADLs upon discharge from hospital Lifestyle Peggy Galarza RN documented as of this encounter Procedures Procedure Name Priority Date/Time Associated Diagnosis Comments LIPID PANEL Routine 02/22/2023 documented in this encounter Results * LIPID PANEL (02/22/2023) CHOLESTEROL 196 HDL 41 TRIGLYCERIDES 129 NON HDL CHOLESTEROL 155 LDL (CALCULATED) 131 02/22/2023 us Default History Genericprovider LABORATORY Final Result documented in this encounter Visit Diagnoses Not on filedocumented in this encounter Care Teams Aerospace Manager Relationship Specialty Start Date End Date Enriqueta Clinton MD [address] [place] [address] PCP - General FAMILY PRACTICE 12/04/21 10/01/23 Danny Navarrete MD [address] [place] [address] PCP - General FAMILY PRACTICE 10/02/23 01/21/24 Cindy Kemp NP [address] [place] [address] PCP - General NURSE PRACTITIONER 01/22/24 documented as of this encounter
== END 2024-11-09 11:32 | disposition home or self-care (01) ==
PROVIDERS: PCP Nurse Practitioner Adult Health; Visit Provider Nurse Practitioner
DX: R10.9 Unspecified abdominal pain (principal); K76.0 Fatty (change of) liver, not elsewhere classified; R93.5 Abnormal findings on diagnostic imaging of other abdominal regions, including retroperitoneum; R14.0 Abdominal distension (gaseous)
CPT/HCPCS: 36415; 74018; 80048; 80074; 80076; 82390; 82728; 82784; 83540; 83550; 85025; 85610; 86015; 86381

== ENCOUNTER 2024-12-23 01:41 | Day surgery (SDC) | payer MEDICARE, SELFPAY ==
[2024-12-13 14:30] VITALS: BMI 36.7
--- OUTSIDE RECORDS SUMMARY | 2024-12-23 01:46 | XMS_ITS | Data Portability ---
Author Organization [place] [facility] [employer], Main Office Address [address] [place] [address] Assessment No assessment recorded. Plan of Treatment Reminders Order Date Submit Date Provider Last Modified By Organization Details Last Modified Time Details Appointments None recorded. Lab magnesium, serum or plasma 2023 [facility] (Lab), [address] [place], [address], 4 20:43:15 ferritin, serum or plasma 2023 [facility] (Lab), [address] [place], [address], 4 21:18:11 iron + total iron-bindin g capacity (TIBC), serum 2023 [facility] (Lab), [address] [place], [address], 4 20:43:30 vitamin B12, serum 2023 [facility] (Lab), [address] [place], [address], 4 22:20:47 folate, serum 2023 [facility] (Lab), [address] [place], [address], 4 22:20:49 BMP, serum or plasma 2023 024 [facility] (Lab), [address] [place], [address], 4 20:43:11 vitamin D3, 25-hydroxy, serum 2023 024 [facility] (Lab), [address] [place], [address], 4 21:31:26 TSH, serum or plasma 2023 024 [facility] (Lab), [address] [place], [address], 4 21:15:39 magnesium, serum or plasma 2022 023 [email or web address] 4 Not available 3 16:51:38 BMP, serum or plasma 2022 023 [email or web address] 4 Not available 3 16:52:03 CBC w/ auto diff 2022 023 [email or web address] 4 Not available 3 16:52:21 TSH, serum or plasma 2022 023 [email or web address] 4 Not available 3 16:51:15 noninvasive colorectal cancer DNA + occult blood screening, QL, stool 2022 023 [email or web address] [employer] [facility], [address], [address], [place], [address], 3 08:26:02 Referral None recorded. Procedures None recorded. Surgeries None recorded. Imaging None recorded. Medication Orders gabapentin 300 mg capsule 2023 024 [facility], [address], [place], [address], 4 17:20:20 alprazolam 1 mg tablet 2023 024 [facility], [address], [place], [address], 17:24:54 Patient TargetsNo targets recorded. Patient InstructionsNo instructions recorded. Reason for Referral None Reported. Results Created Date Observation Date Name Description Value Unit Range Abnormal Flag Note LastModifiedBy Organization Detail LastModifiedTime 05/25/19 23 05/24/2022 COLOG UARD cologuard result reportable Sample Could Not Be Proces sed n/a The sampl e stabi lity limit had been excee ded. The patie nt will be conta cted to initi ate a new sampl e colle ction . Not Available [facility] [address], [place], [address], 06/04/2022 15:47:55 06/19/1906/18/2022 COLOG UARD cologuard result reportable Negati ve negati ve NEGAT ISABELLA TEST RESUL T. A negat isabella Colog uard resul t indic ates a low likel ihood that a color ectal cance r (CRC) or advan ena adeno ma (hilaria omato us polyp s with more advan ena pre-m align ant featu res) is prese nt. The chanc e that a perso n with a negat isabella Colog uard test has a color ectal cance r is less than 1 in 1500 (nega tive predi ctive value >99.9 %) or has an advan ena adeno ma is less than 5.3% (nega tive predi ctive value 94.7% ). These data are based on a prosp ectiv e cross -sect ional study of 10,00 0 indiv idual s at [facility] risk for color ectal cance r who were scree agustin with both Colog uard and colon oscop y. (Mena Chambers et al, N Engl J Med 2014; 370(1 4):12 86-12 97) The la l value (refe rence range ) for this assay is negat isabella. COLOG UARD RE-SC REENI NG RECOM MENDA TION: Perio dic color ectal cance r scree adalberto is an impor tant part of preve ntive healt hcare for asymp tomat ic indiv idual s at [facility] risk for color ectal cance r. Follo wing a negat isabella Colog uard resul t, the Ameri can Cance r Socie ty and U.S. Multi -Soci ety Task Force scree adalberto guide lines recom mend a Colog uard re-sc simba ng inter keerthi of 3 years . Refer ences : Ameri can Cance r Socie ty Guide line for Color ectal Cance r Scree adalberto: https ://kwesi w.can cer.o rg/ca ncer/ colon -rect al-ca ncer/ detec tion- diagn osis- stagi ng/ac s-rec ommen datio ns.ht ml.; Tomas ELLIOTT, Spencer CARRILLO, Mamie MOONEY, Color ectal Cance r Scree adalberto: Recom menda tions for Physi cians and Patie nts from the U.S. Multi -Soci ety Task Force on Color ectal Cance r Scree adalberto , Am J Gastr oente rolog y 2017; 112:1 016-1 030. TEST DESCR IPTIO N: Goldsby site algor ithmi c sadi sis of stool DNA-b latoya stern with hemog lobin immun oassa y. Quant itati ve value s of indiv idual bioma rkers are not repor table and are not assoc iated with indiv idual bioma rker resul t refer ence range s. Colog uard is inten ded for color ectal cance r scree adalberto of adult s of eithe r sex, 45 years or older , who are at [facility] for color ectal cance r (CRC) . Colog uard has been appro ronald for use by the U.S. FDA. The perfo rmanc e of Colog uard was estab lishe d in a cross secti onal study of [facility] adult s aged 50-84 . Colog uard perfo rmanc e in patie nts ages 45 to 49 years was estim ated by sub-g roup sadi sis of near- age group s. Colon oscop ies perfo rmed for a posit isabella resul t may find as the most clini ramón signi fican t lesio n: color ectal cance r [4.0% ], advan ena adeno ma (incl uding sessi le selene verónica polyp s great er than or equal to 1cm diame ter) [20%] or non- advan ena adeno ma [31%] ; or no color ectal neopl audi [45%] . These estim ates are deriv ed from a prosp ectiv e cross -sect ional scree adalberto study of 0 indiv idual s at [facility] risk for color ectal cance r who were scree agustin with both Colog uard and colon oscop y. (Mena Chambers et al, N Engl J Med 2014; 370(1 4):12 86-12 97.) Colog uard may produ ce a false negat isabella or false posit isabella resul t (no color ectal cance r or preca ncero us polyp prese nt at colon oscop y follo w up). A negat isabella Colog uard test resul t does not guara ntee the absen ce of CRC or advan ena adeno ma (pre- cance r). The curre nt Colog uard scree adalberto inter keerthi is every 3 years . (Amer ican Cance r Socie ty and U.S. Multi -Soci ety Task Force ). Colog uard perfo rmanc e data in a 0 patie nt pivot al study using colon oscop y as the refer ence metho d can be acces sed at the follo wing locat ion: www.e xactl abs.c om/re candy . Addit ional descr iptio n of the Colog uard test proce ss, warni ngs and preca ution s can be found at www.c danielle lenzd.c om. Not Available [facility] [address], [place], [address], 06/29/2022 17:39:55 02/12/20 23 02/11/2023 CBC/C OMPLE TE BLD COUNT W/DIF F white blood cells 11.8 x10'3 /uL 4.2-10 .8 high Not Available [facility] (Lab) [address] [place], [address], 02/11/2023 20:22:33 02/12/20 23 02/11/2023 CBC/C OMPLE TE BLD COUNT W/DIF F red blood cells 5.07 x10'6 /uL 3.80-5 .20 Not Available [facility] (Lab) [address] [place], [address], 02/11/2023 20:22:33 02/12/20 23 02/11/2023 CBC/C OMPLE TE BLD COUNT W/DIF F hemoglobin 15.5 g/dL 12.0-1 5.6 Not Available [facility] (Lab) [address] [place], [address], 02/11/2023 20:22:33 02/12/20 23 02/11/2023 CBC/C OMPLE TE BLD COUNT W/DIF F hematocrit 49.1 % 35.7-4 5.7 high Not Available [facility] (Lab) [address] [place], [address], 02/11/2023 20:22:33 02/12/20 23 02/11/2023 CBC/C OMPLE TE BLD COUNT W/DIF F mean red cell volume 96.8 fL 82.0-9 9.0 Not Available [facility] (Lab) [address] [place], [address], 02/11/2023 20:22:33 02/12/20 23 02/11/2023 CBC/C OMPLE TE BLD COUNT W/DIF F mean red cell hemoglobin 30.6 pg 27.0-3 3.0 Not Available [facility] (Lab) [address] [place], [address], 02/11/2023 20:22:33 02/12/20 23 02/11/2023 CBC/C OMPLE TE BLD COUNT W/DIF F mean RBC HGB concentratio n 31.6 g/dL 31.0-3 6.0 Not Available [facility] (Lab) [address] [place], [address], 02/11/2023 20:22:33 02/12/20 23 02/11/2023 CBC/C OMPLE TE BLD COUNT W/DIF F red cell distribution width 15.0 % 11.8-1 5.5 Not Available [facility] (Lab) [address] [place], [address], 02/11/2023 20:22:33 02/12/20 23 02/11/2023 CBC/C OMPLE TE BLD COUNT W/DIF F platelets 197 x10'3 /uL 150-40 0 Not Available [facility] (Lab) [address] [place], [address], 02/11/2023 20:22:33 02/12/20 23 02/11/2023 CBC/C OMPLE TE BLD COUNT W/DIF F mean platelet volume 11.8 fL 9.0-12 .4 Not Available [facility] (Lab) [address] [place], [address], 02/11/2023 20:22:33 02/12/20 23 02/11/2023 CBC/C OMPLE TE BLD COUNT W/DIF F neutrophils 79 % 39.0-7 2.0 high Not Available [facility] (Lab) [address] [place], [address], 02/11/2023 20:22:33 02/12/20 23 02/11/2023 CBC/C OMPLE TE BLD COUNT W/DIF F bands 5 % 0-3 high Not Available [facility] (Lab) [address] [place], [address], 02/11/2023 20:22:33 02/12/20 23 02/11/2023 CBC/C OMPLE TE BLD COUNT W/DIF F lymphocytes 7 % 16.0-4 7.0 low Not Available [facility] (Lab) [address] [place], [address], 02/11/2023 20:22:33 02/12/20 23 02/11/2023 CBC/C OMPLE TE BLD COUNT W/DIF F monocytes 9 % 5.0-12 .0 Not Available [facility] (Lab) [address] [place], [address], 02/11/2023 20:22:33 02/12/20 23 02/11/2023 CBC/C OMPLE TE BLD COUNT W/DIF F neutrophils, absolute count 10.27 x10'3 /uL 1.5-8. 0 high Not Available [facility] (Lab) [address] [place], [address], 02/11/2023 20:22:33 02/12/20 23 02/11/2023 MAGNE SIUM magnesium 1.9 mg/dL 1.6-2. 3 Not Available [facility] (Lab) [address] [place], [address], 02/11/2023 19:16:14 02/12/20 23 02/11/2023 BASIC METAB OLIC PANEL sodium 135 mmol/ L 137-14 5 low Not Available [facility] (Lab) [address] [place], [address], 02/11/2023 19:16:16 02/12/20 23 02/11/2023 BASIC METAB OLIC PANEL potassium 4.9 mmol/ L 3.5-5. 1 Not Available [facility] (Lab) [address] [place], [address], 02/11/2023 19:16:16 02/12/20 23 02/11/2023 BASIC METAB OLIC PANEL chloride 100 mmol/ L 98-107 Not Available [facility] (Lab) [address] [place], [address], 02/11/2023 19:16:16 02/12/20 23 02/11/2023 BASIC METAB OLIC PANEL carbon dioxide 27 mmol/ L 22-30 Not Available [facility] (Lab) [address] [place], [address], 02/11/2023 19:16:16 02/12/20 23 02/11/2023 BASIC METAB OLIC PANEL anion gap 12.9 mmol/ L 14-22 low Not Available [facility] (Lab) [address] [place], [address], 02/11/2023 19:16:16 02/12/20 23 02/11/2023 BASIC METAB OLIC PANEL glucose 133 mg/dL 70-99 high Not Available [facility] (Lab) [address] [place], [address], 02/11/2023 19:16:16 02/12/20 23 02/11/2023 BASIC METAB OLIC PANEL BUN 25 mg/dL 8-19 high Not Available [facility] (Lab) [address] [place], [address], 02/11/2023 19:16:16 02/12/20 23 02/11/2023 BASIC METAB OLIC PANEL creatinine 0.83 mg/dL 0.66-1 .25 Not Available [facility] (Lab) [address] [place], [address], 02/11/2023 19:16:16 02/12/20 23 02/11/2023 BASIC METAB OLIC PANEL GFR >60 Refer ence Range : Reliance ge GFR Healt hy Adult : >60 mL/mi n/1.7 3 m2 Chron ic Kidne y Disea se: 15-60 mL/mi n/1.7 3 m2 Kidne y Failu re: <15/m L/min /1.73 m2 www.n iddk. nih.g ov The MDRD study equat ion has not been valid ated in child reema <18 years of age; pregn ant women ; the elder ly >85 years of age; or in some racia l or ethni c subgr oups, such as Hispa nics. Outsi de the valid ated felice eters , estim ated GFR is less accur ate, requi ring clini jase judgm ent on a case- by-ca se basis . Clini jase inter preta tion for other races and ages must be made by the clini miky. The MDRD study equat ion has not been valid ated for the evalu ation of serum creat inine relat ed to nutri diamond l statu s or medic ation usage . For perso ns <18 years of age, a pedia tric GFR calcu lator is avail able on the [facility] websi te: https ://kwesi cummings.yao escobar.o rg/pr ofess ional s/kdo qi/gf r_cal culat or Not Available [facility] (Lab) [address] [place], [address], 02/11/2023 19:16:16 02/12/20 23 02/11/2023 BASIC METAB OLIC PANEL calcium 9.0 mg/dL 8.4-10 .2 Not Available [facility] (Lab) [address] [place], [address], 02/11/2023 19:16:16 02/12/20 23 02/11/2023 TSH thyroid-stim ulating hormone 2.080 uIU/m L 0.465- 4.680 Not Available [facility] (Lab) [address] [place], [address], 02/11/2023 19:31:35 07/11/19 24 07/11/2023 BASIC METAB OLIC PANEL sodium 136 mmol/ L 137-14 5 low Not Available [facility] (Lab) [address] [place], [address], 07/11/2023 20:43:11 07/11/19 24 07/11/2023 BASIC METAB OLIC PANEL potassium 5.1 mmol/ L 3.5-5. 1 Not Available [facility] (Lab) [address] [place], [address], 07/11/2023 20:43:11 07/11/19 24 07/11/2023 BASIC METAB OLIC PANEL chloride 103 mmol/ L 98-107 Not Available [facility] (Lab) [address] [place], [address], 07/11/2023 20:43:11 07/11/19 24 07/11/2023 BASIC METAB OLIC PANEL carbon dioxide 27 mmol/ L 22-30 Not Available [facility] (Lab) [address] [place], [address], 07/11/2023 20:43:11 07/11/19 24 07/11/2023 BASIC METAB OLIC PANEL anion gap 11.1 mmol/ L 14-22 low Not Available [facility] (Lab) [address] [place], [address], 07/11/2023 20:43:11 07/11/19 24 07/11/2023 BASIC METAB OLIC PANEL glucose 115 mg/dL 70-99 high Not Available [facility] (Lab) [address] [place], [address], 07/11/2023 20:43:11 07/11/19 24 07/11/2023 BASIC METAB OLIC PANEL BUN 22 mg/dL 8-19 high Not Available [facility] (Lab) [address] [place], [address], 07/11/2023 20:43:11 07/11/19 24 07/11/2023 BASIC METAB OLIC PANEL creatinine 0.94 mg/dL 0.66-1 .25 Not Available [facility] (Lab) [address] [place], [address], 07/11/2023 20:43:11 07/11/19 24 07/11/2023 BASIC METAB OLIC PANEL GFR 60 Refer ence Range : Reliance ge GFR Healt hy Adult : >60 mL/mi n/1.7 3 m2 Chron ic Kidne y Disea se: 15-60 mL/mi n/1.7 3 m2 Kidne y Failu re: <15/m L/min /1.73 m2 www.n iddk. nih.g ov The MDRD study equat ion has not been valid ated in child reema <18 years of age; pregn ant women ; the elder ly >85 years of age; or in some racia l or ethni c subgr oups, such as Hispa nics. Outsi de the valid ated felice eters , estim ated GFR is less accur ate, requi ring clini jase judgm ent on a case- by-ca se basis . Clini jase inter preta tion for other races and ages must be made by the clini miky. The MDRD study equat ion has not been valid ated for the evalu ation of serum creat inine relat ed to nutri diamond l statu s or medic ation usage . For perso ns <18 years of age, a pedia tric GFR calcu lator is avail able on the [facility] websi te: https ://kwesi escobar.lui munguia/pr waylon wolf s/kdo qi/gf r_cal culat or Not Available [facility] (Lab) [address] [place], [address], 07/11/2023 20:43:11 07/11/19 24 07/11/2023 BASIC METAB OLIC PANEL calcium 9.1 mg/dL 8.4-10 .2 Not Available [facility] (Lab) [address] [place], [address], 07/11/2023 20:43:11 07/11/19 24 07/11/2023 MAGNE SIUM magnesium 1.9 mg/dL 1.6-2. 3 Not Available [facility] (Lab) [address] [place], [address], 07/11/2023 20:43:15 07/11/19 24 07/11/2023 IRON/ TIBC PANEL total iron binding capacity 239 mcg/d L 265-47 5 low Not Available [facility] (Lab) [address] [place], [address], 07/11/2023 20:55:21 07/11/19 24 07/11/2023 IRON/ TIBC PANEL % transferrin saturation 23 % 20-55 Not Available [facility] (Lab) [address] [place], [address], 07/11/2023 20:55:21 07/11/19 24 07/11/2023 IRON/ TIBC PANEL unsaturated iron bind capacity 184 mcg/d L 126-38 2 Not Available [facility] (Lab) [address] [place], [address], 07/11/2023 20:55:21 07/11/19 24 07/11/2023 IRON/ TIBC PANEL iron 55 mcg/d L 42-175 Not Available [facility] (Lab) [address] [place], [address], 07/11/2023 20:55:21 07/11/19 24 07/11/2023 TSH thyroid-stim ulating hormone 0.087 uIU/m L 0.465- 4.680 low Not Available [facility] (Lab) [address] [place], [address], 07/11/2023 21:15:39 07/11/19 24 07/11/2023 TEN TIN ferritin 301 NG/mL 11.1-2 64 high Not Available [facility] (Lab) [address] [place], [address], 07/11/2023 21:18:11 07/11/19 24 07/11/2023 VITAM IN D 25-HY DROXY vd25oh 30.8 NG/mL 30-100 Vitam in D Statu s: Defic ient: <20 ng/mL Insuf ficie nt: 20-29 ng/mL Suffi cient : 30-10 0 ng/mL Not Available [facility] (Lab) [address] [place], [address], 07/11/2023 21:31:26 07/11/19 24 07/11/2023 VITAM IN B12 (JENNIFER HUGO ) vb12 247 pg/mL 239-93 1 Not Available [facility] (Lab) [address] [place], [address], 07/11/2023 22:20:47 07/11/19 24 07/11/2023 FOLAT E, SERUM /PLAS MA folate 7.95 NG/mL 2.76-2 0.0 Not Available [facility] (Lab) [address] [place], [address], 07/11/2023 22:20:49 12/26/19 22 12/23/2021 MAMMO , scree adalberto, bilat eral No observ ation record ed. [id number] [place], [address], 04/25/2022 08:54:50 01/18/20 22 12/23/2021 LDCT, chest , for lung cance r scree adalberto No observ ation record ed. [id number], [place], [address], 04/25/2022 08:54:50 02/15/20 22 02/13/2022 PET-C T, skull base to mid-t high scan No observ ation record ed. [id number] [place], [address], 04/25/2022 08:54:50 04/04/19 24 03/29/2023 home sleep study No observ ation record ed. [facility] [address] [facility] , [place], [address], 04/04/2023 14:37:32 06/08/19 24 06/03/2023 PFT, compl ete No observ ation record ed. [email or web address] [facility] [address] [facility] [address], [place], [address], 07/13/2023 10:26:03 08/27/19 24 08/20/2023 CT, chest , w/o contr ast No observ ation record ed. [email or web address] [facility] [address] [facility], [place], [address], 09/25/2023 15:46:56 Result Notes None recorded. Problems Name Problem SNOMED Code Status Onset Date Resolution Date Notes Provider Name and Address Organization Details Recorded Time Tobacco user 245732838 Active Not Available Counts include 234 beds at the [facility] 3 08:49:33 Urticaria 939131928 Active Not Available Counts include 234 beds at the [facility] 3 08:49:33 Chronic obstructive pulmonary disease 23142003 Active Not Available Counts include 234 beds at the [facility] 3 08:49:33 Asthma 710292591 Active Not Available Counts include 234 beds at the [facility] 3 08:49:33 Abdominal pain 70604548 Active Not Available Counts include 234 beds at the [facility] 3 08:49:33 Feeling stressed 632673191 Active Not Available Counts include 234 beds at the [facility] 3 08:49:33 Chest pain 61692337 Active Not Available Counts include 234 beds at the [facility] 3 08:49:34 Bronchitis 80508388 Active Not Available Counts include 234 beds at the [facility] 3 08:49:34 Hypothyroidi sm 24346668 Active Not Available Counts include 234 beds at the [facility] 3 08:49:34 Hemorrhoids 46181924 Active Not Available Counts include 234 beds at the [facility] 3 08:49:34 Insomnia 741500222 Active 2022 BRANDT eRnteria [address], [place], [address] , [facility] 3 09:11:43 Nicotine dependence 07500803 Active 2022 BRANDT Renteria [address], [place], [address] , [facility] 3 09:12:51 Acute urinary tract infection 119941617 Active 2022 Enriqueta Clinton MD [address] [facility], [place], [address] , [facility] 3 13:45:38 Spasm 06195453 Active 2022 Enriqueta Clinton MD [address], [place], [address] , [facility] 3 12:59:41 Edema of lower extremity 370102422 Active 2023 Enriqueta Clinton MD [address] [place] [address], [place], [address] , [facility] 4 19:09:23 Otalgia of left ear 9928271407 Active 2023 Enriqueta Clinton MD [address] [place] [address], [place], [address] , [facility] 4 16:16:26 Restless legs syndrome 18467959 Active 2023 Enriqueta Clinton MD [address] [place] [address], [place], [address] , [facility] 4 17:18:12 Vitamin D deficiency 42109658 Active 2023 Enriqueta Clinton MD [address], [address] , [facility] 4 17:18:40 Problem Notes None recorded. Medical Equipment None Reported. Allergies Allergen ID Allergen Name Allergen Category Reaction Reaction Severity Criticality Documentation Date Start Date Code Code System Note Provider Name and Address Organization Details Recorded Time 44997 Substance with sulfonami de structure and antibacte rial mechanism of action (substanc e) medicatio n hives Not available Not available 04/25/2022 [id number] SNOMED Not Available [facility] 3 08:54:45 Medications Name Sig Start Date Stop Date Status Note LastModified by Organization Details LastModified Time furosemide 40 mg tablet TAKE 1 TABLET BY MOUTH ONCE DAILY active Not Available Not Available No t Available levothyroxi ne 175 mcg tablet 1 po qday 04/22 completed Not Available Not Available Not Available ipratropium 0.5 mg-albutero l 3 mg (2.5 mg base)/3 mL nebulizatio n soln active Not Available Not Available Not Available albuterol sulfate 2.5 mg/3 mL (0.083 %) solution for nebulizatio n USE 1 VIAL IN NEBULIZER EVERY 4 HOURS NEEDED FOR SHORTNESS OF BREATH active Not Available Not Available No t Available trazodone 50 mg tablet TAKE 1 TABLET BY MOUTH ONCE DAILY active Not Available Not Available No t Available alprazolam 1 mg tablet active Not Available Not Available Not Available prednisone 20 mg tablet TAKE 2 TABLETS BY MOUTH IN THE MORNING WITH FOOD FOR 5 DAYS active Not Available Not Available No t Available peg-electro lyte solution 420 gram oral solution TAKE 4000 ML BY MOUTH ONCE FOR 1 DOSE active Not Available Not Available No t Available amoxicillin 875 mg tablet TAKE 1 TABLET BY MOUTH EVERY 12 HOURS FOR 7 DAYS 07/09 completed Not Available Not Available Not Available levothyroxi ne 125 mcg tablet TAKE 1 TABLET BY MOUTH ONCE DAILY active Not Available Not Available No t Available levothyroxi ne 150 mcg tablet TAKE 1 TABLET BY MOUTH ONCE DAILY 07/11 completed Not Available Not Available Not Available Advair Diskus 250 mcg-50 mcg/dose powder for inhalation INHALE 1 PUFF BY MOUTH TWICE DAILY active Not Available Not Available No t Available gabapentin 300 mg capsule TAKE 1 CAPSULE BY MOUTH EVERY DAY AT BEDTIME active Not Available Not Available No t Available hydroxyzine HCl 25 mg tablet TAKE 1 TABLET BY MOUTH EVERY 6 TO 8 HOURS NEEDED FOR ITCHING OR HIVES active Not Available Not Available No t Available furosemide 20 mg tablet 1-2 tabs po qday prn edema active Not Available Not Available No t Available Cheratussin AC 10 mg-100 mg/5 mL oral liquid 07/29 completed Not Available Not Available Not Available albuterol sulfate HFA 90 mcg/actuati on aerosol inhaler INHALE 2 PUFFS BY MOUTH EVERY 6 HOURS NEEDED FOR WHEEZING active Not Available Not Available No t Available Vitamin D2 1,250 mcg (50,000 unit) capsule TAKE 1 CAPSULE BY MOUTH ONCE A WEEK 10/23 completed Not Available Not Available Not Available hydroxyzine pamoate 25 mg capsule 11/27 completed Not Available Not Available Not Available nitrofurant oin monohydrate /macrocryst als 100 mg capsule TAKE 1 CAPSULE BY MOUTH EVERY 12 HOURS FOR 7 DAYS 02/11 completed Not Available Not Available Not Available guaifenesin active Not Available Not A vailable Not Available Atarax 11/23 completed Not Available Not Available Not Available Symbicort 160 mcg-4.5 mcg/actuati on HFA aerosol inhaler Inhale 2 puffs twice a day by inhalatio n route. 04/22 completed Not Available Not Available Not Available Chantix Continuing Month Box 1 mg tablet Take 1 tablet twice a day by oral route. 06/05 completed Not Available Not Available Not Available potassium chloride ER 20 mEq tablet,exte nded release Take 1 tablet(s) every day by oral route. active Not Available Not Available No t Available Jardiance 10 mg tablet TAKE 1 TABLET BY MOUTH ONCE DAILY active Not Available Not Available No t Available Stiolto Respimat 2.5 mcg-2.5 mcg/actuati on solution for inhalation Inhale 2 puffs every day by inhalatio n route. 04/22 completed Not Available Not Available Not Available Proctosol HC 2.5 % topical cream perineal applicator apply to affected area bid x 2 weeks prn hemorrhoi ds 11/23 completed Not Available Not Available Not Available Fluarix Quad (PF) 60 mcg (15 mcg x 4)/0.5 mL IM syringe ADM 0.5ML IM UTD active Not Available Not Available No t Available Vitals Date Recorded Oxygen saturation Oxygen saturation in Arterial blood by Pulse oximetry Provider Name and Address Organization Details Last Updated DateTime 05/11/2022 93 % 93 % BRANDT Renteria [address] [facility], [place], [address], [place] [facility] [employer] [facility] 05/11/2022 09:07:12 Date Recorded Body height Body mass index (BMI) Body weight Body temperature Systolic And Diastolic Provider Name and Address Organization Details Last Updated DateTime 05/11/2022 157.48 cm 33.1 kg/m2 40366.2 2 g 97.8 [degF] 125/70 mm[Hg] Bijal Tavarez MA [facility] [employer] [facility] 3 08:49:26 Date Recorded Body height Body mass index (BMI) Body weight Body temperature Heart rate Oxygen saturation Oxygen saturation in Arterial blood by Pulse oximetry Systolic And Diastolic Provider Name and Address Organization Details Last Updated DateTime 4 157.48 cm 36.2 kg/m2 34368.2 9 g 97.8 [degF] 96 /min 95 % 95 % 118/80 mm[Hg] Nikkie Lundberg RN [facility] [employer] [facility] 4 17:01:22 Date Recorded Body mass index (BMI) Body height Oxygen saturation Oxygen saturation in Arterial blood by Pulse oximetry Heart rate Body temperature Body weight Systolic And Diastolic Provider Name and Address Organization Details Last Updated DateTime 2 32.6 kg/m2 157.48 cm 97 % 97 % 105 /min 97.7 [degF] 36471.4 4 g 130/70 mm[Hg] Not Available [facility] 3 08:47:47 Date Recorded Body height Body mass index (BMI) Body weight Body temperature Heart rate Oxygen saturation Oxygen saturation in Arterial blood by Pulse oximetry Inhaled oxygen flow rate Systolic And Diastolic Provider Name and Address Organization Details Last Updated DateTime 3 157.48 cm 32.9 kg/m2 76229.6 3 g 97.4 [degF] 98 /min 93 % 93 % 2 L/min 136/68 mm[Hg] Nikkie Lundberg RN [facility] [employer] [facility] 3 12:45:56 Social History Question Answer Notes LastModified by Organizat ion Details LastModified Time Tobacco Smoking Status Current Every Day Smoker 1 ppd Not Available [facility] 04/25/2022 08:44:31 What Is Your Level Of Caffeine Consumption? None [id number] Information not available 04/25/2022 In The 14 Days Before Symptom Onset, Have You Had Close Contact With A Laboratory-confirm ed COVID-19 While That Case Was Ill? No [id number] Information not available 04/25/2022 In The 14 Days Before Symptom Onset, Have You Had Close Contact With A Person Who Is Under Investigation For COVID-19 While That Person Was Ill? No [id number] Information not available 04/25/2022 What Type Of Diet Are You Following? REGULAR [id number] Information not available 04/25/2022 What Was The Date Of Your Most Recent Tobacco Screening? 10/23/2021 [id number] Information not available 04/25/2022 Have You Ever Been Counseled For Unhealthy Alcohol Use? No [id number] 026 Information not available 04/25/2022 Has Tobacco Cessation Counseling Been Provided? No [id number] 026 Information not available 04/25/2022 Have You Recently Traveled Abroad? No [id number] Information not available 04/25/2022 Do You Have Any Dietary Restrictions? No [id number] 026 Information not available 04/25/2022 Sex: Unknown Functional Status Question Answer Note LastModified by Organizat ion Details LastModified Time Do you use any illicit or recreational drugs? No [id number] Information not available 04/25/2022 Do you or have you ever used any other forms of tobacco or nicotine? No [id number] 026 Information not available 04/25/2022 What is your level of alcohol consumption? Occasional [id number] 026 Information not available 04/25/2022 What is your exercise level? Heavy [id number].[id number] 026 Information not available 04/25/2022 Mental Status None recorded. Family History Relationship Description Onset Age of this Age Resolved Age Notes LastModified by Organization Details LastModified Time Paternal Grandmother Diabetes mellitus [id number] Not available 04/25/2022 08:44:41 Notes:No family h/o breast o r colon cancer Medical History No medical history recorded. Gynecological History Statement/Question Response Date of Last Mammogram 12/23/2021 Obstetrics History GPAL:G 0 P 0 0 0 0 Immunizations Vaccine Type Date Status Note Provider Nam e and Address Organization Details Recorded Time Influenza, MDCK, quadrivalent, preservative completed Maria D Birmingham APRN [address], [place], [address], [facility] [employer] [facility] 11/25/2023 14:42:52 COVID-19, mRNA, LNP-S, PF, 30 mcg/0.3 mL dose 1 completed Maria D Birmnigham APRN [address], [place], [address], [facility] [employer] [facility] [employer] [facility] 11/25/2023 14:42:52 COVID-19, mRNA, LNP-S, PF, 30 mcg/0.3 mL dose 1 completed Maria D Birmingham APRN [address], [place], [address], [facility] [employer] [facility] 11/25/2023 14:42:52 influenza, unspecified formulation 0 completed Maria D Birmingham APRN [address], [place], [address], [facility] [employer] [facility] [employer] [facility] 11/25/2023 14:42:52 Influenza, split virus, quadrivalent, PF 9 completed Maria D Birmingham APRN [address], [place], [address], [facility] [employer] [facility] [employer] [facility] 11/25/2023 14:42:52 SARS-COV-2 (COVID-19) vaccine, UNSPECIFIED 1 completed Maria D Birmingham APRN [address], [place], [address], [facility] [employer] [facility] 11/25/2023 14:42:52 Past Encounters Encounter ID Performer Location Encounter Start Date Encounter Closed Date Diagnosis/Indication Diagnosis SNOMED-CT Code Diagnosis ICD10 Code Diagnosis IMO Codes Diagnosis Note [id number] BRANDT Renteria [facility] Primary [facility] [address] [place] [address] 11/14/2020 00:00:00 11/14/2020 16:49:08 [id number] Enriqueta Clinton MD [facility] Care [address] [place] [address] 10/23/2021 00:00:00 10/24/2021 08:10:47 [id number] BRANDT Renteria [facility] Primary Care [address] [place] [address] 05/11/2022 08:42:09 05/11/2022 09:26:13 Screening for malignant neoplasm of colon 646132901 Z12.11 Will do cologuard at this time due to cost. Previous cologuard normal. Insomnia 827457792 G47.0 9 Here for f/u med check. No refill needed today. UDS updated 10/23/21. Will repeat next visit.Pt understand s this medication has risk for abuse/depe ndence and agrees to take it only as prescribed and to guard from loss/theft .F/u in 3 months. Nicotine dependence 5629 4008 F17.200 1 ppd. Encouraged smoking cessation. Continue annual LDCT. [id number] Enriqueta Clinton MD [facility] Primary Care [address] [place] [address] 02/11/2023 12:39:50 02/11/2023 13:22:02 Hypothyroidism 82092212 E03.9 Spasm 00680538 R25.2 Chronic ob structive pulmonary disease 58423586 J44.9 work on smoking cessationc ontinue steroid taper, nebulizers as orderedcon tinue O2 continuous lyunable to work, I encouraged her to file for disability , I believe she is totally and permanentl y disabled with severe copdf/u with pulmonary as scheduled [id number] Enriqueta Clinton MD [facility] Primary Care [address] [place] [address] 07/10/2023 16:55:19 07/10/2023 18:06:12 Hypothyroidism 61352460 E03.9 Edema of l ower extremity 080619211 R60.0 Restless l egs syndrome 54514806 G25.81 rls vs degenerati ve disk disease with radiationc heck labstrial of gabapentin 300 mg po qhsreviewe d potential med s/e Vitamin D deficiency 347 17245 E55.9 Insomnia 978673304 G47.0 0 stable refill givenPt understand s this medication has risk for abuse/depe ndence and agrees to take it only as prescribed and to guard from loss/theft alprazolam 1 mg po qhs prn insomnia [id number] Peteysanjay Hailed, SERVER SOFTWARE ENGINEER-C [facility] [address] [facility] [address] [place] [address] 08/09/2023 14:36:04 08/09/2023 14:43:02 Health Concerns Section Related Observation LastModified by Organization Detai ls LastModified Time None Recorded Concern Status LastModified by Organization Details LastModified Time None Recorded Advance Directives Directive None Recorded Payers Insurance Date Sequence Insurance Name Policy Number Policy Baig Covered Member ID Baig Member ID Guarantor Name 09/26/2023 1 [facility] (MEDICARE REPLACEMENT/A DVANTAGE - HMO) [id number] [facility] A Khalida [id number] [facility] A Khlaida 09/26/2023 1 [facility] (MEDICAID HMO) [id number] [place] Khalida [id number] [place] A Khalida 07/10/2023 1 [facility] (HMO) [place] Khalida [id number] [facility] Notes Date Note Type Note Provider Name and Address Organization Details Recorded Time 05/11/2022 text/html -Pt. here for med check. No alprazolam refills needed at this time.-Colonoscopy is scheduled for Saturday but she states she will have to pay 3000 dollars for it. She had a cologuard a few years ago and it was normal.-She had CT chest and PET scan; states it was also very expensive. Needs to know when she has to do follow-up. BRANDT Renteria [address] [place] [address], [facility] [address], [place], [address], [facility] - [facility] [employer] 05/11/2022 09:13:43 02/11/2023 text/html ROS as noted in the HPI was hospitalized from 01/28/23 to 02/16/23 for copd exacerbation. She has f/u with pulmonary Dr. Campos and cardiology Dr. Mulkareddy schedued she is on steroid taper, duoneb and advair having muscle cramps-taking 1 pill of potassium daily on oxygen continuously Enriqueta Clinton MD [address] [facility], [facility] [address], [place], [address], [employer] [facility] 02/21/2023 18:03:51 07/10/2023 text/html ROS as noted in the HPI was hospitalized from 01/28/23 to 02/16/23 for copd exacerbation. She has f/u with pulmonary Dr. Campos and cardiology Dr. Jonathan maza she is on steroid taper, duoneb and advair having muscle cramps-taking 1 pill of potassium daily on oxygen continuously 07/09/: 2lpm oxygen continuoushas pain radiating down legs Enriqueta Clinton MD [address] [facility], [facility] [address], [place], [address], [employer] [facility] 07/14/2023 10:05:22 OBGyn Episode No OBEpisode recorded.
--- OUTSIDE RECORDS SUMMARY | 2024-12-23 01:46 | XMS_ITS | Encounter Summary ---
Author Organization [facility] Address [facility] [place] [address] Care Team Providers Care Chin Strap Cutter Name Role Phone Enriqueta Clinton MD Primary Care Provider Danny Navarrete MD Primary Care Provider [phone] Cindy Kemp NP Primary Care Provider [phone] Encounter Details Date Type Department Care Team (Late st Contact Info) Description 02/28/2023 Abstract [facility] [address] Evangelist Lu MA Social History Tobacco Use Types Packs/Day Years Used Date Smoking Tobacco: Every Day Cigarettes 1 45 Smokeless Tobacco: Never Alcohol Use Standard Drinks/Week Comments Yes 0 (1 standard drink = 0.6 oz pur e alcohol) 1 glass loc/day [facility] Utilities Answer Date Recorded In the past 12 months has [employer], gas, oil, or water [employer] threatened to shut off services in your [...] place to sleep or slept in a custodial (including now)? No 01/28/2023 Comments Unknown Sex [...] st Contact Info) Description 01/22/2025 3:00 PM CHIEF SUPPLY CHAIN OFFICER Appointment [facility] [place] [address] Cindy Kemp NP [address] [place] [address] 03/05/2025 12:00 PM CHIEF SUPPLY CHAIN OFFICER Office Visit [facility] [address] Monroe Castillo MD [address] [facility] [address] [place] [address] 04/12/2025 11:40 AM CHIEF SUPPLY CHAIN OFFICER Office Visit [facility] - [facility] [address] [facility] [place] [address] Facundo Pereira MD 3rd [facility] JACQUELINE [address] [place] [address] 08/09/2025 12:30 PM CDT [place]ment [place] [address] Facundo Pereira MD [address] [address] 08/16/2025 11:00 AM CDT Appointment [facility] [place] [place] [address] Facundo Pereira MD [address] [place] [address] 08/16/2025 12:00 PM CDT Appointment [facility] [place] [place] [address] Facundo Pereira MD [address] [place] [phone] documented as of this encounter Goals Goal [...] on filedocumented in this encounter Care Teams Chin Strap Cutter Relationship Specialty Start Date End Date Enriqueta Clinton MD [address] [place] [address] PCP - General FAMILY PRACTICE 12/04/21 10/01/23 Danny Navarrete MD [address] [place] [address] PCP - General FAMILY PRACTICE 10/02/23 01/21/24 Cindy Kemp NP [address] [place] [address] PCP - General NURSE PRACTITIONER 01/22/24 documented as of this encounter
--- OUTSIDE RECORDS SUMMARY | 2024-12-23 01:46 | XMS_ITS | Data Portability ---
Author Organization [facility] [place] Address [address] [place] [address] [place] [address] Assessment No assessment recorded. Plan of Treatment Reminders Order Date Submit Date Provider Last Modified By Organization Details Last Modified Time Details Appointments None recorded. Lab None recorded. Referral None recorded. Procedures None recorded. Surgeries None recorded. Imaging US, pelvis 2024 025 [email or web address] [id number] [place], [address], [place], [address], 17:45:59 US, transvagina l 2024 025 DOUGLAS [place], [address], [address], [place], [address], 17:47:33 Medication Orders None recorded. Patient TargetsNo targets recorded. Patient InstructionsNo instructions recorded. Reason for Referral None Reported. Results Created Date Observation Date Name Description Value Unit Range Abnormal Flag Note LastModifiedBy Organization Detail LastModifiedTime 08/27/1908/26/2024 US, pelvi s No observ ation record ed. [email or web address] [place] [address], [place], [address], 08/26/2024 17:47:24 08/27/19 25 08/26/2024 US, trans vagin al No observ ation record ed. [email or web address] [place] [address], [place], [address], 08/26/2024 17:47:33 08/27/19 25 08/26/2024 US, natalia s No observ ation record ed. [email or web address] [address], [place], [address], 12/01/2024 17:16:09 Result Notes None recorded. Procedures Surgical History Date Name Laterality Status Provider Name and Address Organization Details Recorded Time 5 Date of Last Mammogram completed [facility] 08/19/2024 14:39:22 0 excision of cyst completed [facility] 08/19/2024 14:31:35 2 Tubal Ligation completed [facility] 08/19/2024 14:31:17 Imaging Results None recorded. Procedure Notes None recorded. Medical Equipment None Reported. Allergies Allergen ID Allergen Name Allergen Category Reaction Reaction Severity Criticality Documentation Date Start Date Code Code System Note Provider Name and Address Organization Details Recorded Time 43422 Substance with sulfonami de structure and antibacte rial mechanism of action (substanc e) medicatio n Not available Not available Not available 08/19/2024 76712 8003 SNOMED [facility] 5 14:25:53 Medications Name Sig Start Date Stop Date Status Note LastModified by Organization Details LastModified Time trazodone 50 mg tablet TAKE 1 TABLET BY MOUTH EVERY DAY AT BEDTIME NEEDED FOR INSOMNIA 08/19 completed Not Available Not Available Not Available alprazolam 1 mg tablet TAKE 1 TABLET BY MOUTH ONCE DAILY active Not Available Not Available No t Available Lasix 40 mg tablet Take 1 tablet every day by oral route. active Not Available Not Available No t Available levothyroxi ne 125 mcg tablet TAKE 1 TABLET BY MOUTH ONCE DAILY active Not Available Not Available No t Available gabapentin 300 mg capsule TAKE 1 CAPSULE BY MOUTH EVERY DAY AT BEDTIME active Not Available Not Available No t Available furosemide 20 mg tablet TAKE 1 TABLET BY MOUTH IN THE MORNING 08/19 completed Not Available Not Available Not Available mirtazapine 15 mg tablet TAKE 1 TABLET BY MOUTH EVERY DAY AT BEDTIME 08/19 completed Not Available Not Available Not Available albuterol sulfate active Not Available Not Available Not Available potassium chloride ER 20 mEq tablet,exte nded release TAKE 1 TABLET BY MOUTH ONCE DAILY active Not Available Not Available No t Available Jardiance 10 mg tablet TAKE 1 TABLET BY MOUTH ONCE DAILY active Not Available Not Available No t Available Belsomra 10 mg tablet TAKE 1 TABLET BY MOUTH EVERY DAY AT BEDTIME 08/19 completed Not Available Not Available Not Available Breztri Aerosphere 160 mcg-9mcg-4. 8mcg/actuat ion HFA aerosol inhaler INHALE 2 PUFFS BY MOUTH TWICE DAILY RINSE MOUTH AFTER USE active Not Available Not Available No t Available Paxlovid 300 mg (150 mg x 2)-100 mg tablets in a dose pack TAKE 3 TABLETS TOGETHER (TWO 150 MG NIRMATREL VIR TABLETS AND ONE 100 MG RITONAVIR TABLET) BY MOUTH TWICE DAILY FOR 5 DAYS. 08/19 completed Not Available Not Available Not Available Ozempic 0.25 mg or 0.5 mg (2 mg/3 mL) subcutaneou s pen injector INJECT 0.5 MG SUBCUTANE OUSLY ONCE A WEEK 08/19 completed Not Available Not Available Not Available magnesium-r hubarb-ashw agandha active Not Available Not Available Not Available Vitals Date Recorded Body weight Body mass index (BMI) Body height Systolic And Diastolic Provider Name and Address Organization Details Last Updated DateTime 08/19/2024 57894.24 g 37.1 kg/m2 160.02 cm 112/73 mm[Hg] ROSA Patrick [facility] 08/19/2024 14:37:45 Date Recorded Body height Body mass index (BMI) Body weight Systolic And Diastolic Provider Name and Address Organization Details Last Updated DateTime 09/11/2024 160.02 cm 37.4 kg/m2 26840.99 g 121/79 mm[Hg] Norma Zepeda [facility] 09/11/2024 14:10:27 Social History Question Answer Notes LastModified by Organizat ion Details LastModified Time Tobacco Smoking Status Never Smoker ROSA cantu [facility] 08/19/2024 14:31:56 Do You Have An Advance Directive? No [email or web address] Information n ot available 08/19/2024 Are You Blind Or Do You Have Difficulty Seeing? No Information n ot available 08/19/2024 What Is Your Level Of Caffeine Consumption? None [email or web address] Information not available 08/19/2024 In The 14 Days Before Symptom Onset, Have You Had Close Contact With A Laboratory-confirm ed COVID-19 While That Case Was Ill? No Information n ot available 08/19/2024 In The 14 Days Before Symptom Onset, Have You Had Close Contact With A Person Who Is Under Investigation For COVID-19 While That Person Was Ill? No [email or web address] Information not available 08/19/2024 Have You Been To An Area Known To Be High Risk For COVID-19? No [email or web address] Information not available 08/19/2024 Are You Deaf Or Do You Have Serious Difficulty Hearing? No [email or web address] Information not available 08/19/2024 What Type Of Diet Are You Following? REGULAR [email or web address] Information n ot available 08/19/2024 What Is The Highest Grade Or Level Of School You Have Completed Or The Highest Degree You Have Received? SH49482-5 [email or web address] Information not available 08/19/2024 Are There Any Guns Present In Your Home? No [email or web address] Information not available 08/19/2024 Have You Ever Been Counseled For Unhealthy Alcohol Use? No [email or web address] Information not available 08/19/2024 Do You Use Your Seat Belt Or Car Seat Routinely? Yes [email or web address] Information not available 08/19/2024 Are You Sexually Active? No [email or web address] Information not available 08/19/2024 Do You Have Smoke And Carbon Monoxide Detectors In Your Home? Yes [email or web address] Information not available 08/19/2024 Do You Use Sunscreen Routinely? Yes [email or web address] Information not available 08/19/2024 Has Tobacco Cessation Counseling Been Provided? No [email or web address] Information not available 08/19/2024 Do You Have Difficulty Walking Or Climbing Stairs? No Information not available 08/19/2024 Sex: Unknown Functional Status Question Answer Note LastModified by Organizat ion Details LastModified Time Do you use any illicit or recreational drugs? No [email or web address] Information not available 08/19/2024 Do you or have you ever used any other forms of tobacco or nicotine? No [email or web address] Information not available 08/19/2024 What is your level of alcohol consumption? Occasional [email or web address] Information not available 08/19/2024 Are you currently employed? No [email or web address] Information not available 08/19/2024 Are you able to walk independently without assistance or assistive devices? YESWOREST [email or web address] Information not available 08/19/2024 Are you able to care for yourself independently? Yes [email or web address] Information not available 08/19/2024 Do you have difficulty dressing, bathing, grooming, or toileting? Yes [email or web address] Information not available 08/19/2024 What is your exercise level? None [email or web address] Information not available 08/19/2024 Mental Status Question Answer Note LastModified by Organization D etails LastModified Time Do you feel stressed (tense, restless, nervous, or anxious, or unable to sleep at night)? [id number] [email or web address] Information not available 08/19/2024 Family History Relationship Description Onset Age of this Age Resolved Age Notes LastModified by Organization Details LastModified Time Maternal Grandmother Malignant neoplasm of cervix uteri Not available 14:29:47 Maternal Grandmother Diabetes mellitus [email or web address] Not available 2024 14:29:55 Maternal Grandmother Malignant neoplasm of ovary [email or web address] Not available 2024 14:30:08 Maternal Grandfather Heart disease [email or web address] Not available 2024 14:30:27 Maternal Aunt Diabetes mellitus Not available 2024 14:30:44 Maternal Uncle Heart disease Not available 2024 14:30:55 Medical History Condition Response Allergies (Food, seasonal, environmental ) N Other Y Breast Cancer N Drug/Latex Allergies/Reactions N Blood Transfusion N Lung Disease N Dermatologic Disorders N Defects or Inherited Disease N Breast Problem N Gestational Diabetes N Hematologic disorders N Anesthesia Complications N History of STI N Deep Vein Thrombosis N Polycystic ovary syndrome N Anxiety Disorder N Autoimmune disease N Arthritis N Polyps N Infertility N History of abnormal pap N Acid Reflux (GERD) N Cancer N Varicosities N Stroke N Neurologic/Epilepsy N Endometriosis N High Cholesterol N Fibromyalgia N Headaches N Kidney Disease N Heart Problems N Kidney or Bladder Problems N Thyroid Problems Y GI Problems N Eating Disorder N Anemia N Art (IVF or FET) N Psychiatric Illness N Ovarian Cancer N Diabetes N Pulmonary (TB, Asthma) N Hepatitis/Liver Disease N No Past Medical History N Eczema N Urinary Tract Infection N Abuse/Domestic Violence N Asthma Y Trauma/Violence N Depression/ depression N Heart Disease Y Pre-Eclampsia N Hypertension N Osteoporosis N Thrombophilias N Gynecological History Statement/Question Response Date of Last Mammogram 04/02/2024 Date of LMP On BCP's at Conception? N HPV Vaccine N Colposcopy Current Control Method Tubal Ligat ion Age at First Child 24 Date of Last Colonoscopy Sexually Active? Y Date of DEXA bone scan Age of first menstrual cycle 10 Date of Last Pap Smear Sexual Problems? Y Desired Control Method None Obstetrics History GPAL:G 2 P 2 0 0 2 Type Value Full Term 2 Living 2 Total 2 Past Encounters Encounter ID Performer Location Encounter Start Date Encounter Closed Date Diagnosis/Indication Diagnosis SNOMED-CT Code Diagnosis ICD10 Code Diagnosis IMO Codes Diagnosis Note [id number] CHANO SARKAR MD [place] [address] [address] 08/19/2024 13:56:10 08/19/2024 15:08:43 Pain in female pelvis 288182988 R10.2 072684 - right sided sharp pain and bilateral pelvic cramping for 1 month, no inciting events- exam normal- postmenopa usal, denies PMB- will order pelvic US to evaluate [id number] CHANO SARKAR MD [place] [address] [address] 08/26/2024 12:18:37 08/26/2024 13:11:23 Pain in pelvis 24187301 R10.2 894724 - right sided sharp pain and bilateral pelvic cramping for 1 month, no inciting events- exam normal- postmenopa usal, denies PMB- will order pelvic US to evaluate [id number] CHANO SARKAR MD [place] [address] [address] 09/11/2024 13:42:16 09/14/2024 11:27:06 Pain in pelvis 44211576 R10.2 53137 - right sided sharp pain and bilateral pelvic cramping for 1 month, no inciting events- exam normal- postmenopa usal, denies PMB- pelvic US overall normal aside from intrauteri ne fluid, likely due to cervical stenosis- discussed fluid could be causing uterine cramping due to expansion of uterine cavity- discussed hysterosco py to evaluate for any other abnormalit ies as well as dilation of cervical canal to allow for drainage of fluid- patient declines treatment at this time as pain has improved; will follow up if pain worsens Health Concerns Section Related Observation LastModified by Organization Detai ls LastModified Time None Recorded Concern Status LastModified by Organization Details LastModified Time None Recorded Advance Directives Directive N: Payers Insurance Date Sequence Insurance Name Policy Number Policy Baig Covered Member ID Baig Member ID Guarantor Name 09/14/2024 1 [facility] (MEDICARE REPLACEMENT/A DVANTAGE - HMO) [id number] [place] Gaxiola [id number] [place] Gaxiola Notes Date Note Type Note Provider Name and Address Organization Details Recorded Time 08/19/2024 text/html ROS as noted in the HPI Patient presents for lower right pelvic pain and pelvic cramping for the past month. No obvious inciting events. Cramping is intermittent, similar to her period cramps when she was younger. She has had a right ovarian cystectomy about 20 years ago. No postmenopausal bleeding. Menopause about 20 years ago. Having some hot flashes and night sweats. She is now on lasix for congestive heart failure, and has frequency. No change in bowel habits. Hx of ovarian cancer in her maternal grandmother. Denies pelvic organ prolapse. CHANO SARKAR MD [address], [place], [address], [facility] 08/19/2024 15:08:17 09/11/2024 text/html ROS as noted in the HPI Patient presents for ultrasound follow up of pelvic pain. Was seen previously for cramping abdominal pain and right sided pain. Pain has improved since last visit. No new bleeding or other symptoms. CHANO SARKAR MD [address], [place], [address], [facility] 09/14/2024 10:50:30 OBGyn Episode Ob Episode Information Episode Created Date Number of Fetuses Patient Bloodtype Patient rh Status Prepregnancy Weight lbs Domestic Partner Domestic Partner Phone Father Name Envelope Sealer Operator Status 08/20/19 1 CLOSED Fetus Data First Name Last Name Admitted to NICU Weight (g) Sex Living Outcome Pediatric Complications Fetus ID Race Codes Race Delivery Type 2721.55 2 F Full Term [id number] Vaginal Delivery Dinesh Calculation Initial Dinesh Date Initial Exam Date Initial Exam Provider Initial Ultrasound Date Last Menstrual Period Date Ultra Sound Weeks Gestation 0 Eighteen To Twenty Week Dinesh Update Ultra Sound Date Fundal Height At Umbil Quickening Date Ultra Sound Latest Weeks Gestation Final Dinesh Confirmed By Final Dinesh Confirmed Date Final Dinesh Date Ultra Sound Latest Days Gestation 0 0 Menstrual History Last Menstrual Date Menses Monthly On Bcp Conception Prior Menses Frequency Hcg Plus Date Menarche Onset Age Delivery Information Delivery Date Delivery Type Labor Anesthesia Weeks Gestation Incision Type Labor Labor Length Hrs Delivered By Post Complications Tubal Sterilization Discharge Date Comments 5 39 Discharge Information Feeding Method Contraceptive Method Maternal HG B and HCT Levels Ob Episode Information Episode Created Date Number of Fetuses Patient Bloodtype Patient rh Status Prepregnancy Weight lbs Domestic Partner Domestic Partner Phone Father Name Envelope Sealer Operator Status 08/20/19 1 CLOSED Fetus Data First Name Last Name Admitted to NICU Weight (g) Sex Living Outcome Pediatric Complications Fetus ID Race Codes Race Delivery Type 2551.45 5 M Full Term [id number] Vaginal Delivery Dinesh Calculation Initial Dinesh Date Initial Exam Date Initial Exam Provider Initial Ultrasound Date Last Menstrual Period Date Ultra Sound Weeks Gestation 0 Eighteen To Twenty Week Dinesh Update Ultra Sound Date Fundal Height At Umbil Quickening Date Ultra Sound Latest Weeks Gestation Final Dinesh Confirmed By Final Dinesh Confirmed Date Final Dinesh Date Ultra Sound Latest Days Gestation 0 0 Menstrual History Last Menstrual Date Menses Monthly On Bcp Conception Prior Menses Frequency Hcg Plus Date Menarche Onset Age Delivery Information Delivery Date Delivery Type Labor Anesthesia Weeks Gestation Incision Type Labor Labor Length Hrs Delivered By Post Complications Tubal Sterilization Discharge Date Comments 0 39 Discharge Information Feeding Method Contraceptive Method Maternal HG B and HCT Levels
[2024-12-23 11:05] VITALS: BP 154/77; PULSE 70; RESP 18; TEMP 36.4; O2SAT 98; BMI 37.5
[2024-12-23] MEDS: LACTATED RINGERS 1,000 ML 150 ML IV CONT (11:15)
--- NOTE | 2024-12-23 11:47 | WPDANESEPPF ---
Anes - Initial Pre Proc Eval Procedure: Operation Date: 12/23/24 11:30 Proposed Procedures p Esophagogastroduodenoscopy EGD - Michael Viramontes MD Date/Time: 12/23/24 11:47 Surgeon: Michael Viramontes MD Pre Op Diagnosis: Abdominal distension (gaseous), GERD Patient Data Age: 64 Gender: F Height: 1.6 m Weight: 96.1 kg Last Vital Signs Temp 36.4 C L 12/23/24 11:05 Pulse 70 12/23/24 11:05 Resp 18 12/23/24 11:05 BP 154/77 H 12/23/24 11:05 Pulse Ox 98 12/23/24 11:05 O2 Del Method Room Air 12/23/24 11:05 Allergies Allergy/AdvReac Type Severity Reaction Status Date / Time Sulfa (Sulfonamide Allergy Intermediate Difficulty Verified 12/23/24 11:01 Antibiotics) Breathing Home Medications ?Medication ?Instructions ?Recorded ?Confirmed ?Type Atarax 1 tablet BYMOUTH PRN 10/16/23 12/23/24 History B12 1 tablet BYMOUTH DAILY 10/16/23 12/23/24 History budesonide 160 mcg-glycopyr 9 2 inh inhalation BID 10/16/23 12/23/24 History mcg-formot 4.8 mcg/actuation HFA inhaler (Breztri Aerosphere) empagliflozin 10 mg tablet 10 mg PO DAILY 10/16/23 12/23/24 History (Jardiance) furosemide 40 mg tablet 40 mg PO QAM #90 tabs 04/28/24 12/23/24 Rx alprazolam 1 mg tablet 1 mg PO DAILY #90 tabs 09/30/24 12/23/24 Rx dicyclomine 10 mg capsule 10 mg PO .every 6 hours PRN 11/09/24 12/23/24 Rx abdominal pain #120 caps potassium chloride 20 mEq See Rx Instructions .Route 11/09/24 12/23/24 Rx tablet,extended release .COMPLEX #90 tabs omeprazole 20 mg capsule,delayed See Rx Instructions .Route 11/12/24 12/23/24 Rx release .COMPLEX #30 caps fluoxetine 20 mg capsule 20 mg PO QPM #90 caps 11/23/24 12/23/24 Rx levothyroxine 125 mcg tablet See Rx Instructions .Route 12/07/24 12/23/24 Rx .COMPLEX #90 tabs Patient hx anesthesia problems: none Family hx anesthesia problems: none Results Review: All pre-operative results and documents have been reviewed as part of the pre-operative evaluation. [facility] Past Medical History Medical History Vitamin D deficiency Rash Shaheen's thyroiditis Elevated antinuclear antibody (KEREN) level Obesity Disorder of thyroid COPD (chronic obstructive pulmonary disease) CHF exacerbation Asthma Family History Family History Father Heart disease Grandparent Heart disease Social History Social History Smoking packs per day: 1.5 Smoking cigarettes per day: 30.0 Years smoked: 45 Smoking pack-years: 67.50 Smoking status: Former smoker Tobacco type: cigarettes Alcohol intake: current Drinks per week: 4 Substance use: never Substance use type: does not use Do You Feel Safe in your Home?: Yes Lack of Transportation: No Lack of Food: Sometimes True Current Housing: I Have Housing Concerned About Future Housing: No Difficulty Paying Gas/Electric Bills: No Difficulty Paying for Meds: No Education: High School Diploma/GED Difficulty w/ Childcare or Family Care: No Living arrangements: with family Additional living arrangements comments: with Spiritual care concerns: No Anes - Eval Final PreProcedure Day of Procedure 12/23/24 11:47 Patient weight: obese Heart: regular rate and rhythm Lungs: decreased breath sounds Airway: Mallampati scale class III Neurological: alert and oriented Last oral intake: >/= 8 hours ASA classification: III Emergent: no Anesthetic plan: proceed Anesthesia type and monitoring: general GIVS and standard monitoring Results Review: All pre-operative results and documents have been reviewed as part of the pre-operative evaluation. Informed Consent: The patient's anesthetic plan and its attendant risks and benefits were discussed with the patient/family/POA. Questions were solicited and answers provided to the satisfaction of the patient/family/POA.
--- NOTE | 2024-12-23 12:28 | PM.HPGS ---
History of Present Illness History of Present Illness Consent: Risks, benefits, and alternatives have been discussed and questions answered. Patient agrees to proceed with procedure. Chief complaint: Abdominal distension (gaseous), GERD Narrative: [place] Estrada is a 64 year old female with bloating and abdominal pain that started about 1 year ago after she started using ozempic which she discontinued but still uncomfortable, she had CT scan a/p and was seen by surgeon. Never had EGD Review of Systems Review of Systems: All systems reviewed & are unremarkable except as noted in HPI and below PMFSH Past Medical History Medical History Vitamin D deficiency Rash Shaheen's thyroiditis Elevated antinuclear antibody (KEREN) level Obesity Disorder of thyroid COPD (chronic obstructive pulmonary disease) CHF exacerbation Asthma Family History Family History Father Heart disease Grandparent Heart disease Social History Social History Smoking packs per day: 1.5 Smoking cigarettes per day: 30.0 Years smoked: 45 Smoking pack-years: 67.50 Smoking status: Former smoker Tobacco type: cigarettes Alcohol intake: current Drinks per week: 4 Substance use: never Substance use type: does not use Do You Feel Safe in your Home?: Yes Lack of Transportation: No Lack of Food: Sometimes True Current Housing: I Have Housing Concerned About Future Housing: No Difficulty Paying Gas/Electric Bills: No Difficulty Paying for Meds: No Education: High School Diploma/GED Difficulty w/ Childcare or Family Care: No Living arrangements: with family Additional living arrangements comments: with Spiritual care concerns: No Meds Home Medications and Allergies Home Medications ?Medication ?Instructions ?Recorded ?Confirmed ?Type Atarax 1 tablet BYMOUTH PRN 10/16/23 12/23/24 History B12 1 tablet BYMOUTH DAILY 10/16/23 12/23/24 History budesonide 160 mcg-glycopyr 9 2 inh inhalation BID 10/16/23 12/23/24 History mcg-formot 4.8 mcg/actuation HFA inhaler (Breztri Aerosphere) empagliflozin 10 mg tablet 10 mg PO DAILY 10/16/23 12/23/24 History (Jardiance) furosemide 40 mg tablet 40 mg PO QAM #90 tabs 04/28/24 12/23/24 Rx alprazolam 1 mg tablet 1 mg PO DAILY #90 tabs 09/30/24 12/23/24 Rx dicyclomine 10 mg capsule 10 mg PO .every 6 hours PRN 11/09/24 12/23/24 Rx abdominal pain #120 caps potassium chloride 20 mEq See Rx Instructions .Route 11/09/24 12/23/24 Rx tablet,extended release .COMPLEX #90 tabs omeprazole 20 mg capsule,delayed See Rx Instructions .Route 11/12/24 12/23/24 Rx release .COMPLEX #30 caps fluoxetine 20 mg capsule 20 mg PO QPM #90 caps 11/23/24 12/23/24 Rx levothyroxine 125 mcg tablet See Rx Instructions .Route 12/07/24 12/23/24 Rx .COMPLEX #90 tabs Allergies Allergy/AdvReac Type Severity Reaction Status Date / Time Sulfa (Sulfonamide Allergy Intermediate Difficulty Verified 12/23/24 11:01 Antibiotics) Breathing Vital Signs Vital Signs - 24 hr 12/23/24 11:05 Temperature 97.5 F L Pulse Rate 70 Respiratory Rate 18 Blood Pressure 154/77 H Pulse Oximetry 98 Oxygen Delivery Room Air Exam Const: General: cooperative Orientation/consciousness: patient oriented x3 Eyes: General: appearance normal, both eyes and all related structures Assessment and Plan Assessment and plan (1) Abdominal pain: Qualifiers: Abdominal location: generalized Qualified Code(s): R10.84 - Generalized abdominal pain Code(s): R10.9 - Unspecified abdominal pain Status: Acute Assessment and Plan: egd with bx (2) Bloating: Code(s): R14.0 - Abdominal distension (gaseous) Status: Acute
--- NOTE | 2024-12-23 12:35 | S_PTH ---
PATIENT: [place] Gaxiola LOC: [facility] Abrams#:[id number] AGE/SX: 64/F ROOM: RE12/23/[address]: Michael Viramontes MD : 1960 BED: DIS: 12/23/2024 SPEC #: [id number] RECD: 12/23/24 13:22 STATUS: JEFFERY TORRE #: [id number] ZULAY: 12/23/24 12:[address]: Michael Viramontes DEPT: [facility] Surgical RECD BY: Teresita Wallace ENTERED: 12/23/24 13:23 SP TYPE: Surgical OTHR DR: Cindy Kemp APRN Tissues: A - Small Bowel Bx B - Gastric Biopsy Procedures: Hematoxylin and Eosin Stain Gross and Microscopic Level 4
[2024-12-23 12:42] VITALS: BP 123/77; PULSE 80; RESP 23; O2SAT 93
[2024-12-23 12:52] VITALS: BP 134/90; PULSE 72; RESP 16; O2SAT 97
[2024-12-23 13:02] VITALS: BP 153/87; PULSE 61; RESP 19
== END 2024-12-23 13:13 | disposition home or self-care (01) ==
PROVIDERS: PCP Nurse Practitioner Adult Health; Referring Provider Nurse Practitioner; Visit Provider Internal Medicine Gastroenterology
PROC: 0DJ08ZZ Inspection of Upper Intestinal Tract, Via Natural or Artificial Opening Endoscopic (ICD-10-PCS; CPT 43239; principal; 2024-12-23 11:30)
DX: K21.9 Gastro-esophageal reflux disease without esophagitis (principal); K31.89 Other diseases of stomach and duodenum; E55.9 Vitamin D deficiency, unspecified; E06.3 Autoimmune thyroiditis; J44.9 Chronic obstructive pulmonary disease, unspecified; I50.9 Heart failure, unspecified; E66.9 Obesity, unspecified; Z68.37 Body mass index [BMI] 37.0-37.9, adult; Z79.51 Long term (current) use of inhaled steroids; Z79.84 Long term (current) use of oral hypoglycemic drugs; Z87.891 Personal history of nicotine dependence; Z82.49 Family history of ischemic heart disease and other diseases of the circulatory system
CPT/HCPCS: 43239; 88305; J2003; J2704; J7120

== ENCOUNTER 2025-01-12 09:54 | Outpatient (CLI) | payer MEDICARE, SELFPAY ==
[2025-01-12 12:12] LABS: CRP 2.5 mg/dL (<1.0); Lipase 84 U/L (23-300)
[2025-01-12 12:14] LABS: Immunoglobulin A 256 mg/dL (70-400)
[2025-01-14 18:08] LABS: ANA by IFA Rfx Titer/Pattern Positive (.)
== END 2025-01-12 09:55 | disposition home or self-care (01) ==
PROVIDERS: PCP Nurse Practitioner Adult Health; Visit Provider Nurse Practitioner
DX: R10.9 Unspecified abdominal pain (principal); K76.0 Fatty (change of) liver, not elsewhere classified; R93.5 Abnormal findings on diagnostic imaging of other abdominal regions, including retroperitoneum; R14.0 Abdominal distension (gaseous); K21.9 Gastro-esophageal reflux disease without esophagitis
CPT/HCPCS: 36415; 82103; 82784; 83690; 85652; 86038; 86140; 86376